=== PATIENT | female | born 1955 | race African-American/Black ===

== ENCOUNTER 2016-08-05 15:23 | Emergency (ER) | payer MEDICARE, MEDICAID ==
[~2016-08-05] VITALS: Ht 180.3 cm; Wt 123.8 kg
[2016-08-05 16:00] VITALS: BP 149/96
--- NOTE | 2016-08-05 16:16 | Emergency Room Report ---
History of Present Illness General Chief Complaint: Upper Respiratory Illness Source: Patient Present Illness HPI 60 YO Female presents to the ED c/o cough and increased phlegm x5 days, difficult to clear phlegm from throat, denies fevers or chills was recently treated with Z-pack for pneumonia. denies SOB, wheezing, edema in the lower extremities, abdominal pain, rashes, RICHARDSON, or neck pain/stiffness. Denies CP, Palpitations, LOC, AMS, dizziness, Changes in Vision, Sensation, paresthesias, or a sudden severe headache. Allergies: Coded Allergies: IODINE (Verified Allergy, Unknown, 08/05/16) Patient History Past Medical History: see triage record Past Surgical History: none Pertinent Family History: none Last Menstrual Period: menopause Now: No Immunizations: UTD Reviewed Nursing Documentation: PMH: Agreed, PSxH: Agreed Nursing Documentation-PMH Past Medical History: No History, Except For Hx Hypertension: Yes Hx Diabetes: Yes Hx Gastrointestinal Problems: Yes - GERD Review of Systems All Other Systems: negative except mentioned in HPI Physical Exam Vital Signs Date Time Temp Pulse Resp B/P Pulse Ox O2 Delivery O2 Flow Rate FiO2 08/05/16 15:45 98.2 83 16 149/96 100 Room Air Sp02 EP Interpretation: reviewed, normal General Appearance: no apparent distress, alert, GCS 15, non-toxic Head: normocephalic, atraumatic Eyes: bilateral eye PERRL, bilateral eye normal inspection ENT: hearing grossly normal, normal pharynx, no angioedema, normal voice Neck: full range of motion, no meningismus, no bony tend, supple/symm/no masses Respiratory: chest non-tender, lungs clear, normal breath sounds, speaking full sentences, wheezing - scant bilateral wheezing Cardiovascular #1: regular rate, rhythm, no edema, normal capillary refill Musculoskeletal: back normal, gait/station normal, normal range of motion, non- tender Neurologic: alert, oriented x3, responsive, motor strength/tone normal, sensory intact, speech normal Psychiatric: judgement/insight normal, memory normal, mood/affect normal Skin: normal color, no rash, warm/dry, well hydrated Lymphatic: no adenopathy Medical Decision Making PA Attestation Dr. Marquez is my supervising Physician whom patient management has been discussed with. Diagnostic Impression: Primary Impression: Bronchitis Additional Impression: Phlegm in throat ER Course Pt. presents to the ED c/o cough and increased phlegm x5 days, difficult to clear phlegm from throat, denies fevers or chills was recently treated with Z- pack for pneumonia. Ddx considered but are not limited to URI, pneumonia, PE, strep pharyngitis, meningitis. Vital signs: Pt.is afebrile VS are WNL H&PE are most consistent with bronchitis ORDERS: none required at this time, the diagnosis is clinical ED INTERVENTIONS: None required at this time. DISCHARGE: At this time pt. is stable for d/c to home. Will provide printed patient care instructions, and any necessary prescriptions. Care plan and follow up instructions have been discussed with the patient prior to discharge. Last Vital Signs Date Time Temp Pulse Resp B/P Pulse Ox O2 Delivery O2 Flow Rate FiO2 08/05/16 15:45 98.2 83 16 149/96 100 Room Air Disposition: HOME, SELF-CARE Condition: Stable Scripts Albuterol Sulfate* (ALBUTEROL SULFATE MDI*) 8.5 Gm Hfa.aer.ad 2 PUFF INH Q4H, #1 INH 0 Refills Prov: Claribel Toribio 08/05/16 Codeine/Promethazine Hcl* (PROMETHAZINE-CODEINE SYRUP*) 118 Ml Syrup 5 ML ORAL Q6H Y for For Cough, #118 ML 0 Refills Prov: Claribel Toribio 08/05/16 Guaifenesin (Guaifenesin) 1,200 Mg Tab.er.12h 1200 MG PO BID for 10 Days, #20 TAB Prov: Claribel Toribio 08/05/16 Patient Instructions: Acute Bronchitis Additional Instructions: Take medications as directed. Follow up with PCP in 3-5 days Return sooner to ED if new symptoms occur, or current symptoms become worse. - Please note that this Emergency Department Report was dictated using [employer] web architect technology software, occasionally this can lead to erroneous entry secondary to interpretation by the dictation equipment. Claribel Toribio August 05, 2016 16:16
[2016-08-05 16:30] VITALS: BP 149/96
[2016-08-05] MEDS ORDERED: ALBUTEROL SULF8.5 GM INH (16:31)
[2016-08-05] MEDS ORDERED: PROMETHAZINE-C118 M1 ORAL (16:31)
[2016-08-05] MEDS ORDERED: GUAIFENESIN1200 MG PO (16:31)
== END 2016-08-05 17:30 | disposition home or self-care (01) ==
LOC: EMR 17:15
DX: J20.9 Acute bronchitis, unspecified (principal); Z91.041 Radiographic dye allergy status; I10 Essential (primary) hypertension; E11.9 Type 2 diabetes mellitus without complications; K21.9 Gastro-esophageal reflux disease without esophagitis
CPT/HCPCS: 99284

== ENCOUNTER 2017-02-08 06:04 | Emergency (ER) | payer MEDICARE, MEDICAID ==
[~2017-02-08] VITALS: Ht 180.3 cm; Wt 126.1 kg
[~2017-02-08 06:04] MED LIST: ALBUTEROL SULF8.5 GM INH; GUAIFENESIN1200 MG PO; PROMETHAZINE-C118 M1 ORAL
[2017-02-08 06:15] VITALS: BP 161/97
--- NOTE | 2017-02-08 06:38 | Emergency Room Report ---
History of Present Illness General Chief Complaint: Pain Source: Patient Present Illness HPI Patient is a 61-year-old female who presented after having increased right knee pain. Patient had prior history of arthritis. The patient present for several months. The patient presented increased pain behind her patella. This had worsened over the past few days. The patient was having increased pain with ambulation. She denies any trauma. The patient noticed some increased swelling. She had not been having any fever. She denied taking pain medications at home. Allergies: Coded Allergies: IODINE (Verified Allergy, Unknown, 08/05/16) Patient History Past Medical History: see triage record Last Menstrual Period: n/a Reviewed Nursing Documentation: PMH: Agreed, PSxH: Agreed Nursing Documentation-PMH Hx Hypertension: Yes Hx Diabetes: Yes Hx Gastrointestinal Problems: Yes - GERD Review of Systems All Other Systems: negative except mentioned in HPI Physical Exam Vital Signs Date Time Temp Pulse Resp B/P (MAP) Pulse Ox O2 Delivery O2 Flow Rate FiO2 02/08/17 06:06 98.2 90 16 161/97 94 Room Air General Appearance: well appearing, no apparent distress, obese Head: normocephalic, atraumatic ENT: hearing grossly normal, normal voice Neck: full range of motion, supple Respiratory: no respiratory distress, speaking full sentences Cardiovascular #1: normal inspection, regular rate, rhythm, no edema, no gallop Musculoskeletal: digits/nails normal, no calf tenderness, other - slight joint swelling, no ligamentous laxity right knee, slight tenderness to patella Neurologic: normal inspection, alert, oriented x3, responsive, 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 Differential diagnosis included was not limited to popliteal aneurysm, arthritis, dislocation, ligamentous injury, septic joint among others. Patient's benign exam and does not appear to require any further imaging or laboratory testing at this time. The patient given IM Toradol for pain. The patient is advised to follow up with primary care doctor in 1-2 days. Patient is advised to return if any worsening condition or if any changes in status that are concerning. Last Vital Signs Date Time Temp Pulse Resp B/P (MAP) Pulse Ox O2 Delivery O2 Flow Rate FiO2 02/08/17 06:06 98.2 90 16 161/97 94 Room Air Status: improved Disposition: HOME, SELF-CARE Condition: Stable JimmyEliezer Feb 08, 2017 06:38
[2017-02-08] MEDS ORDERED: LIDOCAINE700 M1 TP (06:39)
[2017-02-08] MEDS ORDERED: Ketorolac 60mg Inj IM ONE (06:45)
[2017-02-08 06:53] VITALS: BP 161/97
== END 2017-02-08 06:53 | disposition home or self-care (01) ==
LOC: EMR 06:36
DX: M17.11 Unilateral primary osteoarthritis, right knee (principal); I10 Essential (primary) hypertension; K21.9 Gastro-esophageal reflux disease without esophagitis; Z88.8 Allergy status to other drugs, medicaments and biological substances
CPT/HCPCS: 96372; 99283

== ENCOUNTER 2017-05-02 12:17 | Emergency (ER) | payer MEDICARE, MEDICAID ==
[~2017-05-02] VITALS: Ht 180.3 cm; Wt 122.9 kg
[~2017-05-02 12:17] MED LIST changes: +LIDOCAINE700 M1 TP
[2017-05-02 12:37] VITALS: BP 179/99
[2017-05-02] MEDS ORDERED: PROMETHAZI6.25 MG/1 ORAL (12:56)
[2017-05-02] MEDS ORDERED: IBUPROFEN600 MG ORAL (12:56)
--- NOTE | 2017-05-02 12:56 | Emergency Room Report ---
History of Present Illness General Chief Complaint: Upper Respiratory Illness Source: Patient, Medical Record Present Illness HPI 61 yo female patient presents to ER complaining of cough x1 week. Patient reports taking Robitussin with mild relief of symptoms. Patient requesting medication to help with cough. Patient denies history of sick contacts. Patient denies fever, nausea, vomiting, chest pain, SOB, rash, vision changes. Allergies: Coded Allergies: IODINE (Verified Allergy, Unknown, 08/05/16) Patient History Past Medical History: see triage record Social History: Denies: smoking, alcohol use, drug use Reviewed Nursing Documentation: PMH: Agreed, PSxH: Agreed Nursing Documentation-PMH Past Medical History: No History, Except For Hx Hypertension: Yes Hx Diabetes: Yes Hx Gastrointestinal Problems: Yes - GERD Review of Systems All Other Systems: negative except mentioned in HPI Physical Exam Vital Signs Date Time Temp Pulse Resp B/P (MAP) Pulse Ox O2 Delivery O2 Flow Rate FiO2 05/02/17 12:31 98.2 89 18 179/99 97 Room Air Sp02 EP Interpretation: reviewed, normal General Appearance: no apparent distress, alert, GCS 15, non-toxic Head: normocephalic, atraumatic Eyes: bilateral eye normal inspection, bilateral eye PERRL ENT: hearing grossly normal, normal pharynx, no angioedema, normal voice, TMs + canals normal, uvula midline, moist mucus membranes Neck: full range of motion, supple/symm/no masses Respiratory: chest non-tender, lungs clear, normal breath sounds, no respiratory distress, no accessory muscle use, no wheezing, speaking full sentences Cardiovascular #1: regular rate, rhythm Genitourinary: no CVA tenderness Musculoskeletal: back normal, digits/nails normal, gait/station normal, normal range of motion, non-tender, calf tenderness Neurologic: alert, oriented x3, responsive, motor strength/tone normal, sensory intact, speech normal Psychiatric: memory normal, mood/affect normal Skin: normal color, no rash, warm/dry, well hydrated Lymphatic: no adenopathy Medical Decision Making PA Attestation Dr. Robles is my supervising Physician whom patient management has been discussed with. Diagnostic Impression: Primary Impression: Upper respiratory infection ER Course Pt presents to ED c/o cough DDX considered but are not limited to influenza, viral URI, allergies, rhinitis , sinusitis. VITAL SIGNS are WNL, patient is afebrile ORDERS: none required at this time, diagnosis is clinical ED INTERVENTIONS: none required at this time DISCHARGE: At this time pt is stable for d/c to home. -Rx given for Motrin/Ibuprofen for fever/pain. -Rx given for Promethazine syrup for cough sx. Patient to take medications as instructed Will provide with patient care instructions and any necessary prescriptions. Care plan and follow-up instructions provided. Patient instructed to follow-up with primary care provider in 3 - 5 days. Patient questions asked and answered. ER precautions given. Patient instructed to return to ER immediately for any new or worsening of symptoms including but not limited to increasing SOB, persistent fever. Last Vital Signs Date Time Temp Pulse Resp B/P (MAP) Pulse Ox O2 Delivery O2 Flow Rate FiO2 05/02/17 12:37 98.2 18 179/99 97 Room Air 05/02/17 12:37 89 Disposition: HOME, SELF-CARE Condition: Stable Scripts Ibuprofen* (MOTRIN*) 600 Mg Tablet 600 MG ORAL Q8H Y for For Pain, #30 TAB 0 Refills Prov: Esteban Mike 05/02/17 Promethazine Hcl (PROMETHAZINE HCL*) 6.25 Mg/5 Ml Syrup 5 ML ORAL Q8H, #120 ML 0 Refills Prov: Esteban Mike 05/02/17 Patient Instructions: Upper Respiratory Infection, Adult Additional Instructions: Followup with primary care provider in 3 -5 days. Take medications as directed. Patient questions asked and answered. ER precautions given, patient instructed to return to ER immediately for any new or worsening of symptoms. Esteban Mike May 02, 2017 12:56
[2017-05-02 13:12] VITALS: BP 179/99
== END 2017-05-02 13:13 | disposition home or self-care (01) ==
LOC: EMR 12:58
DX: J06.9 Acute upper respiratory infection, unspecified (principal); I10 Essential (primary) hypertension; E11.9 Type 2 diabetes mellitus without complications; K21.9 Gastro-esophageal reflux disease without esophagitis
CPT/HCPCS: 99284

== ENCOUNTER 2017-06-27 14:38 | Emergency (ER) | payer MEDICARE, MEDICAID ==
[~2017-06-27] VITALS: Ht 180.3 cm; Wt 123.8 kg
[~2017-06-27 14:38] MED LIST changes: +IBUPROFEN600 MG ORAL; +PROMETHAZI6.25 MG/1 ORAL
--- NOTE | 2017-06-27 14:56 | Emergency Room Report ---
History of Present Illness General Chief Complaint: Female Urogenital Problems Source: Patient, Medical Record Present Illness HPI 61 yo female patient presents to ER complaining of foul smelling vaginal odor. Reports frequency. Denies dysuria, hematuria, vaginal discharge. Reports sexually monogamous relationship with boyfriend; denies use of condoms. Reports LMP was years ago. Reports hx of syphilis treated years ago; no active infection. Denies hx of gonorrhea or chlamydia. Denies vaginal sores or lesions. Reports last PAP one year ago, no abnormal findings. Denies fever, chest pain, SOB, abdominal pain. Allergies: Coded Allergies: IODINE (Verified Allergy, Unknown, 08/05/16) Patient History Past Medical History: see triage record Last Menstrual Period: menopause Reviewed Nursing Documentation: PMH: Agreed; PSxH: Agreed Nursing Documentation-PMH Past Medical History: No History, Except For Hx Hypertension: Yes Hx Diabetes: Yes Hx Gastrointestinal Problems: Yes - GERD Review of Systems All Other Systems: negative except mentioned in HPI Physical Exam Vital Signs Date Time Temp Pulse Resp B/P (MAP) Pulse Ox O2 Delivery O2 Flow Rate FiO2 06/27/17 14:45 98.7 83 18 157/87 95 Room Air 98.8 Sp02 EP Interpretation: reviewed, normal General Appearance: well appearing, no apparent distress, alert, GCS 15, non- toxic Head: normocephalic, atraumatic Eyes: bilateral eye normal inspection, bilateral eye PERRL ENT: hearing grossly normal, normal pharynx, no angioedema, normal voice, uvula midline, moist mucus membranes Neck: full range of motion Respiratory: lungs clear, normal breath sounds, no rhonchi, no respiratory distress, no accessory muscle use, no wheezing, speaking full sentences Cardiovascular #1: regular rate, rhythm, no edema Gastrointestinal: non tender, soft, no mass, non-distended, no guarding, no rebound Genitourinary: no CVA tenderness, deferred Musculoskeletal: back normal, digits/nails normal, gait/station normal, normal range of motion, non-tender Neurologic: alert, oriented x3, responsive, motor strength/tone normal, sensory intact Psychiatric: mood/affect normal Skin: no rash Lymphatic: no adenopathy Medical Decision Making PA Attestation Dr. Robles is my supervising Physician whom patient management has been discussed with. Diagnostic Impression: Primary Impression: Vaginitis Additional Impression: Urinary tract infection ER Course Pt presents to ED c/o foul smell from vagina. DDX considered but are not limited to cystitis, pyelonephritis, STI, vaginitis, bacterial vaginosis. VITAL SIGNS are WNL, patient is afebrile. Ordered UA. ER COURSE Pelvic deferred. UA results positive for WBC and leukocyte esterase, indicate possible UTI, patient complains of frequency, will treat with abx. Will provide treatment for symptomatic vaginitis. Patient instructed to refrain from sexual contact. Followup with primary care provider and OBGYN. Followup with STI clinic for further testing and treatment. Sexual partners may require testing and treatment as well. Low suspicion for STI, sexually monogamous relationship, no vaginal discharge. Will not test for STI in ER. Patient is resting comfortably in chair, nontoxic appearing, in no acute distress. Patient states they feel better and is ready to go home. DISCHARGE: -Rx provided for Flagy. Do not drink while on medication. Rx provided for Keflex for UTI. Will provide with patient care instructions and any necessary prescriptions. Patient understands and agrees to treatment plan. Patient encouraged to drink plenty of fluids. Patient to take medication as instructed. Care plan and follow-up instructions provided. Patient questions asked and answered. Reports understanding and agreement to treatment plan. Patient instructed to follow-up with primary care provider in 3 - 5 days. ER precautions given. Patient instructed to return to ER immediately for any new or worsening of symptoms. Including but not limited to fever, worsening pain , intractable vomiting. Labs Test 06/27/17 15:15 Urine Color Yellow Urine Appearance Slightly cloudy Urine pH 6 (4.5-8.0) Urine Specific [place] 1.020 (1.005-1.035) Urine Protein 1+ (NEGATIVE) Urine Glucose (UA) Negative (NEGATIVE) Urine Ketones 1+ (NEGATIVE) Urine Occult Blood 2+ (NEGATIVE) Urine Nitrite Negative (NEGATIVE) Urine Bilirubin Negative (NEGATIVE) Urine Urobilinogen 1 MG/DL (0.0-1.0) Urine Leukocyte Esterase 2+ (NEGATIVE) Urine RBC 5-10 /HPF (0 - 2) Urine WBC 2-4 /HPF (0 - 2) Urine Squamous Epithelial Cells Few /LPF (NONE/OCC) Urine Amorphous Sediment Few /LPF (NONE) Urine Bacteria Few /HPF (NONE) Last Vital Signs Date Time Temp Pulse Resp B/P (MAP) Pulse Ox O2 Delivery O2 Flow Rate FiO2 06/27/17 14:45 98.7 83 18 157/87 95 Room Air 98.8 Disposition: HOME, SELF-CARE Condition: Stable Scripts Cephalexin* (KEFLEX*) 500 Mg Capsule 500 MG ORAL EVERY 12 HOURS for 7 Days, #14 CAP 0 Refills Prov: Esteban Mike 06/27/17 Metronidazole* (FLAGYL*) 500 Mg Tablet 500 MG ORAL BID for 7 Days, #14 TAB Prov: Esteban Mike 06/27/17 Patient Instructions: Vaginitis, Urinary Tract Infection Additional Instructions: Followup with primary care provider in 3 -5 days. Take medications as directed. Patient questions asked and answered. ER precautions given, patient instructed to return to ER immediately for any new or worsening of symptoms. Esteban Mike Jun 27, 2017 14:56
[2017-06-27 15:20] VITALS: BP 157/87
[2017-06-27 15:56] LABS: BILIRUBIN, URINE NEGATIVE (NEGATIVE); GLUCOSE, URINE (UA) NEGATIVE (NEGATIVE); KETONES,URINE 1+ (NEGATIVE); LEUKOCYTE ESTERASE ,URINE 2+ (NEGATIVE); NITRITE,URINE NEGATIVE (NEGATIVE); PH,URINE 6 (4.5-8.0); PROTEIN,URINE 1+ (NEGATIVE); UROBILINOGEN,URINE 1 MG/DL (0.0-1.0)
[2017-06-27 15:58] LABS: APPEARANCE,URINE SLIGHTLY CLOUDY; COLOR,URINE YELLOW
[2017-06-27] MEDS ORDERED: METRONIDAZOLE500 MG ORAL (16:06)
[2017-06-27] MEDS ORDERED: CEPHALEXIN500 MG ORAL (16:14)
[2017-06-27 16:32] VITALS: BP 153/91
== END 2017-06-27 16:33 | disposition home or self-care (01) ==
LOC: EMR 14:57
DX: N76.0 Acute vaginitis (principal); N39.0 Urinary tract infection, site not specified; E11.9 Type 2 diabetes mellitus without complications; I10 Essential (primary) hypertension; K21.9 Gastro-esophageal reflux disease without esophagitis
CPT/HCPCS: 81003; 99284

== ENCOUNTER 2017-07-11 15:59 | Emergency (ER) | payer MEDICARE, MEDICAID ==
[~2017-07-11] VITALS: Ht 170.2 cm; Wt 123.4 kg
[~2017-07-11 15:59] MED LIST changes: +CEPHALEXIN500 MG ORAL; +METRONIDAZOLE500 MG ORAL
[2017-07-11 16:17] VITALS: BP 151/86
--- NOTE | 2017-07-11 16:38 | Emergency Room Report ---
History of Present Illness General Chief Complaint: Female Urogenital Problems Source: Patient, Medical Record Present Illness HPI 61 yo female patient presents to ER complaining of itching and rash on external vagina since yesterday. Reports used coconut Dove soap last night; reports usually uses "pink Dove soap ". Reports "feels like" swelling and redness of vaginal lips. Reports unable to see vagina and unsure if rash in area. Denies use of medication. Denies hx of STI. Reports appointment with primary care provider scheduled for next Friday. Denies dysuria, hematuria. Denies chest pain, SOB. Allergies: Coded Allergies: IODINE (Verified Allergy, Unknown, 08/05/16) Patient History Past Medical History: see triage record Last Menstrual Period: menopause Reviewed Nursing Documentation: PMH: Agreed; PSxH: Agreed Nursing Documentation-PMH Past Medical History: No History, Except For Hx Hypertension: Yes Hx Diabetes: Yes Hx Gastrointestinal Problems: Yes - GERD Review of Systems All Other Systems: negative except mentioned in HPI Physical Exam Vital Signs Date Time Temp Pulse Resp B/P (MAP) Pulse Ox O2 Delivery O2 Flow Rate FiO2 07/11/17 16:11 98.3 91 16 151/86 95 Room Air 98.2 Sp02 EP Interpretation: reviewed, normal General Appearance: well appearing, no apparent distress, alert, GCS 15, non- toxic Head: normocephalic, atraumatic Eyes: bilateral eye normal inspection, bilateral eye PERRL ENT: hearing grossly normal, normal pharynx, no angioedema, normal voice, uvula midline, moist mucus membranes Neck: full range of motion Respiratory: lungs clear, normal breath sounds, no rhonchi, no respiratory distress, no accessory muscle use, no wheezing, speaking full sentences Cardiovascular #1: regular rate, rhythm, no edema Genitourinary: ext genitalia/vag normal, other - no Bartholin cyst Musculoskeletal: back normal, digits/nails normal, gait/station normal, normal range of motion, non-tender Neurologic: alert, oriented x3, responsive, motor strength/tone normal, sensory intact Psychiatric: mood/affect normal Skin: no rash, other - no discharge, no satellite lesions, no central clearing , no open wounds, no vesicles, no blisters, no sores, no erythema or edema Medical Decision Making PA Attestation Dr. Marquez is my supervising Physician whom patient management has been discussed with. Diagnostic Impression: Primary Impression: Contact dermatitis ER Course Pt. presents to the ED c/o rash. Ddx considered but are not limited to atopic dermatitis, allergic reaction, contact dermatitis, fungal infection. No satellite lesions, no maculopapular rash, no vesicles, no blisters. No dysuria, hematuria, vaginal discharge, does not require UA at this time. Vital signs: are WNL, pt. is afebrile ORDERS: None required at this time, the diagnosis is clinical ER COURSE: PE benign. Will treat symptomatically for contact dermatitis. If concern for STI , f/u with STI clinic. Reports no concern at this time. D/c use of new Dove soap. Apply small amount of hydrocortisone cream to affected area. Do not put in vaginal vault. Return to ER for new or worsening of symptoms. Discuss further treatment and followup at schedule appointment with PCP next Friday. DISCHARGE: -Rx given for Hydrocortisone At this time pt. is stable for d/c to home. Patient resting comfortably, in no acute distress, nontoxic appearing, smiling and laughing and playing on his phone. Will provide printed patient care instructions, and any necessary prescriptions. Care plan and follow up instructions have been discussed with the patient prior to discharge. Patient provided with list of healthcare clinics to establish primary care physician. Patient instructed to follow-up with primary care provider in 3 - 5 days. Patient questions asked and answered. ER precautions given. Patient instructed to return to ER immediately for any new or worsening of symptoms including but not limited to increasing SOB, persistent fever. Last Vital Signs Date Time Temp Pulse Resp B/P (MAP) Pulse Ox O2 Delivery O2 Flow Rate FiO2 07/11/17 16:17 98.2 91 16 151/86 95 Room Air 98.2 Disposition: HOME, SELF-CARE Condition: Stable Scripts Hydrocortisone 1% cream (Hydrocortisone 1% cream) Y Cr 28.4 GM RC DAILY for 5 Days, GM Prov: Esteban Mike 07/11/17 Patient Instructions: Contact Dermatitis, Wiwu-de-Hlru Additional Instructions: Followup with primary care provider at scheduled appointment. Take medications as directed. Do not apply excessive amount of cream to affected area. Patient questions asked and answered. ER precautions given, patient instructed to return to ER immediately for any new or worsening of symptoms. Esteban Mike Jul 11, 2017 16:38
[2017-07-11] MEDS ORDERED: HYDROCORTISON28.4 G5 RC (17:06)
[2017-07-11 17:13] VITALS: BP 151/86
== END 2017-07-11 17:15 | disposition home or self-care (01) ==
LOC: EMR 17:00
DX: L25.9 Unspecified contact dermatitis, unspecified cause (principal); I10 Essential (primary) hypertension; E11.9 Type 2 diabetes mellitus without complications; K21.9 Gastro-esophageal reflux disease without esophagitis; Z91.041 Radiographic dye allergy status
CPT/HCPCS: 99283

== ENCOUNTER 2017-11-29 19:13 | Observation (INO) | payer MEDICARE, MEDICAID ==
[~2017-11-29] VITALS: Ht 182.9 cm; Wt 124.7 kg
[~2017-11-29 19:13] MED LIST changes: +HYDROCORTISON28.4 G5 RC
[2017-11-29 19:47] LABS: APPEARANCE,URINE SLIGHTLY CLOUDY; BILIRUBIN, URINE NEGATIVE (NEGATIVE); COLOR,URINE AMBER; GLUCOSE, URINE (UA) NEGATIVE (NEGATIVE); KETONES,URINE NEGATIVE (NEGATIVE); LEUKOCYTE ESTERASE ,URINE NEGATIVE (NEGATIVE); NITRITE,URINE NEGATIVE (NEGATIVE); PH,URINE 6 (4.5-8.0); PROTEIN,URINE NEGATIVE (NEGATIVE); UROBILINOGEN,URINE NORMAL MG/DL (0.0-1.0)
[2017-11-29 20:00] LABS: EOSINOPHILS % (AUTO) 1.4 % (0.0-3.0); HEMATOCRIT 40.5 % (37.0-47.0); HEMOGLOBIN 12.9 G/DL (12.0-16.0); MEAN CORPUSCULAR VOLUME 92 FL (80-99); MONOCYTES % (AUTO) 2.9 % (1.0-10.0); NEUTROPHILS % (AUTO) 68.7 % (45.0-75.0); PLATELET COUNT 265 K/UL (150-450); WHITE BLOOD COUNT 16.3 K/UL (4.8-10.8)
[2017-11-29 20:08] LABS: ANION GAP 9 mmol/L (5-15); BLOOD UREA NITROGEN 15 mg/dL (7-18); CALCIUM 9.3 MG/DL (8.5-10.1); CARBON DIOXIDE 28 MMOL/L (21-32); CHLORIDE 102 MMOL/L (98-107); POTASSIUM 3.5 MMOL/L (3.5-5.1); SODIUM 139 MMOL/L (136-145)
[2017-11-29 20:13] LABS: ALANINE AMINOTRANSFERASE 29 U/L (12-78); ALBUMIN 3.8 G/DL (3.4-5.0); ALBUMIN/GLOBULIN RATIO 0.9 (1.0-2.7); ALKALINE PHOSPHATASE 109 U/L (46-116); ASPARTATE AMINO TRANSFERASE 17 U/L (15-37); BILIRUBIN,TOTAL 0.5 MG/DL (0.2-1.0)
[2017-11-29 20:25] VITALS: BP 136/82
--- NOTE | 2017-11-29 20:39 | Diagnostic Imaging Report ---
EXAM: XR Abdomen 2 Views With XR Chest CLINICAL HISTORY: ABD PAIN TECHNIQUE: Frontal view of the chest, frontal view of the abdomen/pelvis and upright or decubitus view of the abdomen. COMPARISON: No relevant prior studies available. FINDINGS: Lungs: Unremarkable. No consolidation. Pleural space: Unremarkable. No pneumothorax. Heart: Unremarkable. No cardiomegaly. Mediastinum: Unremarkable. Intraperitoneal space: No free air. Gastrointestinal tract: Unremarkable. No dilation. Organs: Evidence of prior cholecystectomy. Bones/joints: Unremarkable. IMPRESSION: No acute findings.
--- NOTE | 2017-11-29 20:39 | Diagnostic Imaging Report ---
EXAM: XR Chest, 1 View CLINICAL HISTORY: ABD PAIN TECHNIQUE: Frontal view of the chest. COMPARISON: No relevant prior studies available. FINDINGS: Lungs: Unremarkable. No consolidation. Pleural space: Unremarkable. No pneumothorax. Heart: Unremarkable. No cardiomegaly. Mediastinum: Unremarkable. Bones/joints: Unremarkable. IMPRESSION: Normal chest x-ray.
--- NOTE | 2017-11-29 21:28 | Emergency Room Report ---
History of Present Illness General Chief Complaint: Constipation Source: Patient (Jj Tovar M.D.) Present Illness HPI Patient presents with constipation. She initially had diarrhea several days ago. Her boyfriend also had diarrhea also. She took Imodium. This stopped her from moving her bowels. She has not moved her bowels for 3 days. She has left flank pain without dysuria or hematuria. In addition to that she's had some chest pain. The patient is diabetic and hypertensive. The diarrhea was brown and green and mucousy. There is no blood. She's not passed blood per rectum. (Jj Tovar M.D.) Allergies: Coded Allergies: IODINE (Verified Allergy, Unknown, 08/05/16) Patient History Past Medical History: see triage record Social History: Denies: smoking, alcohol use, drug use Social History Narrative with boyfriend Reviewed Nursing Documentation: PMH: Agreed; PSxH: Agreed (Jj Tovar M.D.) Nursing Documentation-PMH Hx Hypertension: Yes Hx Diabetes: Yes Hx Gastrointestinal Problems: Yes - GERD (Jj Tovar M.D.) Review of Systems All Other Systems: negative except mentioned in HPI (Jj Tovar M.D.) Physical Exam Vital Signs Date Time Temp Pulse Resp B/P (MAP) Pulse Ox O2 Delivery O2 Flow Rate FiO2 11/29/17 19:24 98.5 91 18 134/80 95 Room Air 98.4 Sp02 EP Interpretation: reviewed, normal General Appearance: no apparent distress, GCS 15 Head: normocephalic Eyes: bilateral eye normal inspection, bilateral eye PERRL ENT: moist mucus membranes Neck: supple Respiratory: lungs clear, normal breath sounds Cardiovascular #1: regular rate, rhythm Cardiovascular #2: 2+ radial (R) Gastrointestinal: normal inspection, normal bowel sounds, non-distended, no rebound, guarding, tenderness - L flank and LLQ, overweight Genitourinary: no CVA tenderness Musculoskeletal: back normal, gait/station normal, normal range of motion Neurologic: alert, oriented x3, grossly normal Psychiatric: mood/affect normal Skin: normal inspection, warm/dry, other - alopecia (Jj Tovar M.D.) Medical Decision Making Diagnostic Impression: Primary Impression: Left flank pain Additional Impressions: Diabetes Qualified Codes: E11.8 - Type 2 diabetes mellitus with unspecified complications Leukocytosis Qualified Codes: D72.829 - Elevated white blood cell count, unspecified Microscopic hematuria Constipation Qualified Codes: K59.00 - Constipation, unspecified ER Course Patient presents with diarrhea and no constipation. Differential includes viral gastroenteritis now with constipation after she Imodium, diverticulitis, pyelonephritis, renal stone amongst others. As diabetic has higher, comorbidity. Evaluation will be with EKG, chest x-ray, abdominal film and labs. Patient be treated with IV hydration. Concern over chest pain also and ACS needs exclusion. Exam is most c/w diverticulitis. Difficult exam due to obesity. Patient has leukocytosis. Chest x-ray unremarkable. Abdomen films with no obstruction. Because of leukocytosis the patient needs to have CT scan of the abdomen. Considerations for obstructing stone, diverticulitis amongst others. Patient awaiting CT scan. She has an improved exam at this time. There is no guarding. There is still some mild left CVA tenderness. No pyuria. Still needs observation as initial process suggested gastroenteritis, now with constipation is against this diagnosis. Leukocytosis disconcerting. Consideration with hematuria, renal stone. Patient needs observation. Admit med Dr. Gutierrez. CT signed out to Dr. Chery. Laboratory Tests Test 11/29/17 19:24 11/29/17 19:45 Urine Color Ale Urine Appearance Slightly cloudy Urine pH 6 (4.5-8.0) Urine Specific [place] 1.015 (1.005-1.035) Urine Protein Negative (NEGATIVE) Urine Glucose (UA) Negative (NEGATIVE) Urine Ketones Negative (NEGATIVE) Urine Blood 2+ (NEGATIVE) H Urine Nitrite Negative (NEGATIVE) Urine Bilirubin Negative (NEGATIVE) Urine Ictotest Negative (NEGATIVE) Urine Urobilinogen Normal MG/DL (0.0-1.0) Urine Leukocyte Esterase Negative (NEGATIVE) Urine RBC 10-15 /HPF (0 - 2) H Urine WBC 0-2 /HPF (0 - 2) Urine Squamous Epithelial Cells Moderate /LPF (NONE/OCC) H Urine Bacteria Few /HPF (NONE) White Blood Count 16.3 K/UL (4.8-10.8) H Red Blood Count 4.40 M/UL (4.20-5.40) Hemoglobin 12.9 G/DL (12.0-16.0) Hematocrit 40.5 % (37.0-47.0) Mean Corpuscular Volume 92 FL (80-99) Mean Corpuscular Hemoglobin 29.4 PG (27.0-31.0) Mean Corpuscular Hemoglobin Concent 31.9 G/DL (32.0-36.0) L Red Cell Distribution Width 12.0 % (11.6-14.8) Platelet Count 265 K/UL (150-450) Mean Platelet Volume 6.6 FL (6.5-10.1) Neutrophils (%) (Auto) 68.7 % (45.0-75.0) Lymphocytes (%) (Auto) 26.0 % (20.0-45.0) Monocytes (%) (Auto) 2.9 % (1.0-10.0) Eosinophils (%) (Auto) 1.4 % (0.0-3.0) Basophils (%) (Auto) 1.0 % (0.0-2.0) Sodium Level 139 MMOL/L (136-145) Potassium Level 3.5 MMOL/L (3.5-5.1) Chloride Level 102 MMOL/L (98-107) Carbon Dioxide Level 28 MMOL/L (21-32) Anion Gap 9 mmol/L (5-15) Blood Urea Nitrogen 15 mg/dL (7-18) Creatinine 1.0 MG/DL (0.55-1.30) Estimate Glomerular Filtration Rate > 60 mL/min (>60) Glucose Level 156 MG/DL (74-106) H Calcium Level 9.3 MG/DL (8.5-10.1) Total Bilirubin 0.5 MG/DL (0.2-1.0) Aspartate Amino Transferase (AST) 17 U/L (15-37) Alanine Aminotransferase (ALT) 29 U/L (12-78) Alkaline Phosphatase 109 U/L (46-116) Total Protein 7.9 G/DL (6.4-8.2) Albumin 3.8 G/DL (3.4-5.0) Globulin 4.1 g/dL Albumin/Globulin Ratio 0.9 (1.0-2.7) L Lipase 169 U/L (73-393) (Jj Tovar M.D.) ER Course Patient signout to mn. She was been admitted for abdominal pain and leukocytosis. CT scan was pending. (CHERY,SANDRO M.D.) EKG Diagnostic Results Rate: normal Rhythm: NSR ST Segments: no acute changes (Jj Tovar M.D.) Rhythm Strip Diag. Results EP Interpretation: yes Rhythm: NSR, no PVC's, no ectopy (Jj Tovar M.D.) Chest X-Ray Diagnostic Results Chest X-Ray Diagnostic Results : Chest X-Ray Ordered: Yes # of Views/Limited/Complete: 1 View Indication: Other Interpretation: no consolidation, no effusion, no pneumothorax Impression: No acute disease Electronically Signed by: Electronically signed by Jj Tovar MD (Jj Tovar M.D.) Other X-Ray Diagnostic Results Other X-Ray Diagnostic Results : X-Ray ordered: abd # of Views/Limited Vs Complete: 1 View Indication: Pain Interpretation: nonspecific bowel gas, no sbo, other - girth Impression: Other Electronically Signed by: Electronically signed by jJ Tovar MD (Jj Tovar M.D.) CT/MRI/US Diagnostic Results CT/MRI/US Diagnostic Results : Imaging Test Ordered: abd pelvis Impression Return after admission. FINDINGS: Lung bases: Dependent atelectasis. ABDOMEN: Liver: Cirrhotic liver. Gallbladder and bile ducts: Gallbladder is surgically absent. Pancreas: Unremarkable. Spleen: Unremarkable. Adrenals: Unremarkable. Kidneys and ureters: Unremarkable. Stomach and bowel: Noninflamed colonic diverticulosis. PELVIS: Appendix: Appendix is unremarkable. Bladder: Unremarkable. Reproductive: Unremarkable as visualized. ABDOMEN and PELVIS: Intraperitoneal space: Unremarkable. Bones/joints: No acute fracture. No dislocation. Soft tissues: Unremarkable. Vasculature: Vascular calcifications. No abdominal aortic aneurysm. Lymph nodes: Unremarkable. IMPRESSION: No acute findings. (Jj Tovar M.D.) CT/MRI/US Diagnostic Results : Imaging Test Ordered: CT abdomen Impression negative per radiologist. (SANDRO CHERY M.D.) Last Vital Signs Date Time Temp Pulse Resp B/P (MAP) Pulse Ox O2 Delivery O2 Flow Rate FiO2 11/30/17 04:00 98.1 88 18 160/87 (111) 98 98.1 11/30/17 03:08 Room Air Status: improved (Jj Tovar M.D.) Disposition: ADMITTED INPATIENT Condition: Serious Referrals: NON PHYSICIAN (PCP) Jj Tovar M.D. Nov 29, 2017 21:28 SANDRO CHERY M.D. Nov 30, 2017 01:57
[2017-11-29] MEDS ORDERED: Isovue-300 100ml vial INJ PRN (21:45)
[2017-11-29 22:25] VITALS: BP 155/84
[2017-11-30 00:25] VITALS: BP 146/76
[2017-11-30] MEDS ORDERED: GABAPENTIN100 MG ORAL (01:35)
[2017-11-30] MEDS ORDERED: PRILOSEC OTC20 MG ORAL (01:35)
[2017-11-30] MEDS ORDERED: METFORMIN HCL500 M1 ORAL (01:35)
[2017-11-30] MEDS ORDERED: ENALAPRIL1.25 MG/ML IV (01:35)
--- NOTE | 2017-11-30 01:40 | Diagnostic Imaging Report ---
EXAM: CT Abdomen and Pelvis With Intravenous Contrast CLINICAL HISTORY: ABD PAIN TECHNIQUE: Axial computed tomography images of the abdomen and pelvis with intravenous contrast. CTDI is 0.15, 34.43 mGy and DLP is 1889 mGy-cm. One or more of the following dose reduction techniques were used: automated exposure control, adjustment of the mA and/or kV according to patient size, use of iterative reconstruction technique. COMPARISON: No relevant prior studies available. FINDINGS: Lung bases: Dependent atelectasis. ABDOMEN: Liver: Cirrhotic liver. Gallbladder and bile ducts: Gallbladder is surgically absent. Pancreas: Unremarkable. Spleen: Unremarkable. Adrenals: Unremarkable. Kidneys and ureters: Unremarkable. Stomach and bowel: Noninflamed colonic diverticulosis. PELVIS: Appendix: Appendix is unremarkable. Bladder: Unremarkable. Reproductive: Unremarkable as visualized. ABDOMEN and PELVIS: Intraperitoneal space: Unremarkable. Bones/joints: No acute fracture. No dislocation. Soft tissues: Unremarkable. Vasculature: Vascular calcifications. No abdominal aortic aneurysm. Lymph nodes: Unremarkable. IMPRESSION: No acute findings.
[2017-11-30] MEDS ORDERED: Milk of Magnesia 30ml Ud ORAL PRN (02:00)
[2017-11-30 04:00] VITALS: BP 160/87
[2017-11-30 08:00] VITALS: BP 168/82
[2017-11-30 09:00] VITALS: BP 141/75
[2017-11-30] MEDS ORDERED: Cefepime HCl 1 GM in D5W 55 ML IVPB SCH (09:00)
[2017-11-30] MEDS ORDERED: Albuterol 90mcg Inhaler 8gm INH SCH (11:00)
[2017-11-30] MEDS ORDERED: metFORMIN 500mg tab ORAL SCH (11:30)
[2017-11-30 12:00] VITALS: BP 153/89
--- NOTE | 2017-11-30 13:46 | Cardiology Report ---
APPROVED REPORT EKG Measurement Heart [id number] Normal sinus rhythm Normal ECG
[2017-11-30] MEDS ORDERED: 1/2 NS 1000ml IV ONE (13:59)
--- NOTE | 2017-12-01 00:45 | History and Physical Report ---
DATE OF ADMISSION: 11/29/2017 CHIEF COMPLAINT/REASON FOR HOSPITALIZATION: The patient admitted with left low back and flank pain, history of diarrhea and constipation. HISTORY OF PRESENT ILLNESS: The patient is a 62-year-old lady with a history of diabetes, hypertension, and gastritis. She had diarrhea last week multiple times a day and this abated and she has been constipated for the last few days. She also complains of left-sided flank pain area and low back pain. She has had spinal stenosis and low back pain. She also has osteoarthritis and injections in her knees about three weeks ago. PAST SURGICAL HISTORY: section, gallbladder, and one procedure for kidney stones. MEDICATIONS: Home medications include metformin 500 mg b.i.d., Prilosec 20 mg daily, gabapentin uncertain dose b.i.d., and enalapril uncertain dose b.i.d. ALLERGIES: To iodine and fish. HABITS: She is a smoker about half pack a day. Alcohol, moderately heavy in the past. Drugs, none. REVIEW OF SYSTEMS: HEENT: Vision and hearing are good. ENDOCRINE: History of diabetes. No obesity. No known thyroid disease. PULMONARY: No asthma, TB, or chronic cough. CARDIAC: No angina, [place], or palpitations. There is a history of hypertension. GASTROINTESTINAL: See history of present illness. There is no history of rectal bleeding or ulcers. GENITOURINARY: She had prior kidney stones. No recurrence. No recent dysuria or hematuria. NEUROLOGIC: No CVA or seizures. MUSCULOSKELETAL: History of back pain and knee pain. PHYSICAL EXAMINATION: GENERAL: The patient is an alert lady, in no acute distress. VITAL SIGNS: Pulse 77, blood pressure 141/75, pulse oximetry 100%, and temperature 98.1 degrees. HEENT: Sclerae are nonicteric. Ocular motions intact in all directions. Oral mucosa moist. NECK: No adenopathy or thyroid enlargement. LUNGS: Clear. HEART: Regular rhythm. No murmur. ABDOMEN: Soft, obese. No organomegaly or tenderness. BACK: No focal tenderness. EXTREMITIES: No edema, cyanosis, or clubbing. Degenerative changes in the knees. Straight leg raising is normal. NEUROLOGIC: She is alert and oriented. Cranial nerves are intact. PERTINENT LABORATORY DATA: Electrolytes normal, glucose 156. She had mild leukocytosis and a CT scan of the abdomen showed no acute disease, but evidence of cirrhosis. IMPRESSION: 1. Left flank pain, very likely from spinal stenosis and low back pain. She does have microscopic hematuria and prior history of kidney stones, but the imaging did not reveal any hydronephrosis or stone, this could be observed. 2. Recent diarrhea and now constipation, likely viral gastroenteritis. The diarrhea has resolved. 3. Osteoarthritis. 4. Diabetes. 5. History of gastritis. 6. History of hypertension. PLAN: The patient was observed and discharge is planned. See my discharge note. Yohan Gutierrez M.D. DR: SHAMEKA JOB#: [id number] CC:
--- NOTE | 2017-12-01 04:30 | Discharge Summary ---
DATE OF ADMISSION: 11/29/2017 DATE OF DISCHARGE: 11/30/2017 PERTINENT HISTORY: See the History and Physical. She presents with left-sided flank and back pain and a history of recent diarrhea and constipation. COURSE IN THE HOSPITAL: She had imaging showing no acute abdominal process, but evidence of cirrhosis. This is explained to the patient. Her pain was mild and she was able to tolerate the pain. There was no dysuria. She had microscopic hematuria. Her vital signs remained stable. She is able to tolerate diet. No nausea or vomiting. It was felt that she had reached maximum hospital benefit and she was discharged home. FINAL DIAGNOSES: 1. Left low back pain and flank pain, likely due to spinal stenosis and lumbar degenerative joint disease. 2. Osteoarthritis. 3. Recent gastroenteritis with diarrhea, resolved. 4. Constipation post diarrhea, likely due to not yet requiring bowel movement because of diarrhea recently. 5. Diabetes. 6. Hypertension. 7. Osteoarthritis. 8. Microscopic hematuria with prior history of kidney stones with negative imaging. PLAN: The patient is stable for discharge home on her prior to admission medicines. See the History and Physical. She is welcome to follow up in the office of Dr. Gutierrez or her prior providers. Yohan Gutierrez M.D. DR: SHAMEKA JOB#: [id number] CC:
== END 2017-11-30 14:00 | disposition home or self-care (01) ==
LOC: EMR 19:53 → 4E 22:33 → INTOOBSV 22:33 → EDBEDREQ 11-30 00:40
DX: M48.061 Spinal stenosis, lumbar region without neurogenic claudication (principal); M51.36 Other intervertebral disc degeneration, lumbar region; R10.9 Unspecified abdominal pain; M19.90 Unspecified osteoarthritis, unspecified site; K59.00 Constipation, unspecified; E11.9 Type 2 diabetes mellitus without complications; Z79.84 Long term (current) use of oral hypoglycemic drugs; Z88.8 Allergy status to other drugs, medicaments and biological substances; F17.200 Nicotine dependence, unspecified, uncomplicated; K29.70 Gastritis, unspecified, without bleeding; I10 Essential (primary) hypertension; R31.29 Other microscopic hematuria
CPT/HCPCS: 36415; 71045; 74018; 74177; 80053; 81003; 83690; 85025; 87045; 87324; 93005; 94640; 99285; G0378 ×2; Q9967

== ENCOUNTER 2018-01-01 19:40 | Emergency (ER) | payer MEDICARE, MEDICAID ==
[~2018-01-01] VITALS: Ht 180.3 cm; Wt 127.0 kg
[~2018-01-01 19:40] MED LIST changes: +ENALAPRIL1.25 MG/ML IV; +GABAPENTIN100 MG ORAL; +METFORMIN HCL500 M1 ORAL; +PRILOSEC OTC20 MG ORAL
[2018-01-01] MEDS ORDERED: Albuterol/Ipratropium 3ml neb HHN ONE (20:15)
[2018-01-01 20:40] VITALS: BP 158/98
[2018-01-01] MEDS ORDERED: ALBUTEROL SULF8.5 GM INH (21:00)
[2018-01-01] MEDS ORDERED: ADULT WAL-100 MG/5 M ORAL (21:00)
[2018-01-01] MEDS ORDERED: CLARITIN-D 121 EAC1 ORAL (21:00)
[2018-01-01 21:54] VITALS: BP 140/90
--- NOTE | 2018-01-01 22:05 | Emergency Room Report ---
History of Present Illness General Chief Complaint: Flu Like Symptoms Source: Patient Present Illness HPI Patient is a 62-year-old female who presented after increased cough and difficulty breathing. Patient reports having prior history of asthma. She reports currently being a smoker. She reports having increased nasal congestion as well as the increased nonproductive cough. The she denies any leg pain or swelling. She reports having a previous similar symptoms in the past. She denies any exertional changes. She was having some chronic pain to her extremities. Allergies: Coded Allergies: IODINE (Verified Allergy, Unknown, 08/05/16) Patient History Past Medical History: see triage record Now: No Reviewed Nursing Documentation: PMH: Agreed; PSxH: Agreed Nursing Documentation-PMH Past Medical History: No History, Except For Hx Hypertension: Yes Hx Diabetes: Yes Hx Gastrointestinal Problems: Yes - GERD Review of Systems All Other Systems: negative except mentioned in HPI Physical Exam Vital Signs Date Time Temp Pulse Resp B/P (MAP) Pulse Ox O2 Delivery O2 Flow Rate FiO2 01/01/18 19:47 99.1 90 20 158/98 95 Room Air 99.1 01/01/18 20:37 21 General Appearance: well appearing, no apparent distress, obese, Chronically Ill Head: normocephalic, atraumatic ENT: hearing grossly normal, normal voice Neck: full range of motion, supple Respiratory: normal breath sounds, no respiratory distress, speaking full sentences, wheezing Cardiovascular #1: normal inspection, regular rate, rhythm, no edema Gastrointestinal: normal inspection, normal bowel sounds, non tender, soft Musculoskeletal: no calf tenderness Neurologic: normal inspection, alert, oriented x3, responsive, normal gait Psychiatric: mood/affect normal Skin: no rash Medical Decision Making Diagnostic Impression: Primary Impression: Acute bronchitis ER Course Patient presented for cough . Differential diagnosis included but was not limited to bronchitis, pneumonia, pulmonary embolism, pericarditis, asthma, foreign body. The x-ray imaging of the chest one view interpreted by me showed normal cardiac size without evident infiltrate there is no evident pleural effusion. The patient given breathing treatment with improvement in her symptoms. The patient is given prescription for symptomatically treatment. Patient does not appear to have any acute bacterial illness. She has no known risk factor for pulmonary embolism.The patient is advised to follow up with primary care doctor in 1-2 days. Patient is advised to return if any worsening condition or if any changes in status that are concerning. This report is dictated with [employer] cutter software which may occasionally lead to discrepancies related to use of this software. Chest X-Ray Diagnostic Results Chest X-Ray Diagnostic Results : Chest X-Ray Ordered: Yes # of Views/Limited/Complete: 1 View EP Interpretation: Yes Interpretation: no consolidation, no effusion, no pneumothorax, no acute cardiopulmonary disease Impression: No acute disease Electronically Signed by: Electronically signed by Dr. Eliezer Marquez M.D. Last Vital Signs Date Time Temp Pulse Resp B/P (MAP) Pulse Ox O2 Delivery O2 Flow Rate FiO2 01/01/18 21:54 98.1 92 14 140/90 96 Room Air 01/01/18 20:47 21 Status: improved Disposition: HOME, SELF-CARE Condition: Stable Scripts Loratadine/Pseudoephedrine (CLARITIN-D 12 HOUR TABLET) 1 Each Tab.er.12h 1 TAB ORAL EVERY 12 HOURS, #14 TAB Prov: Eliezer Marquez MD 01/01/18 Albuterol Sulfate* (ALBUTEROL SULFATE MDI*) 8.5 Gm Hfa.aer.ad 2 PUFF INH Q4H PRN for cough/wheezing, #1 EA 0 Refills Prov: Eliezer Marquez MD 01/01/18 Guaifenesin* (ADULT WAL-TUSSIN*) 100 Mg/5 Ml Liquid 10 ML ORAL Q4H, #120 ML Prov: Eliezer Marquez MD 01/01/18 Referrals: NON PHYSICIAN (PCP) Patient Instructions: Allergic Rhinitis, Acute Bronchitis Eliezer Marquez MD Jan 01, 2018 22:05
--- NOTE | 2018-01-02 08:57 | Diagnostic Imaging Report ---
Indication: Shortness of breath Technique: One view of the chest Comparison: 11/29/2017 Findings: Suboptimal inspiration. The lungs and pleural spaces are clear. The heart is apparently borderline enlarged, probably an artifact of the low lung volumes. Findings are essentially unchanged Impression: Negative
== END 2018-01-01 21:51 | disposition home or self-care (01) ==
LOC: EMR 21:16
DX: J20.9 Acute bronchitis, unspecified (principal); E11.9 Type 2 diabetes mellitus without complications; I10 Essential (primary) hypertension; K21.9 Gastro-esophageal reflux disease without esophagitis
CPT/HCPCS: 71045; 94640; 94664; 99284; J7620

== ENCOUNTER 2018-01-15 17:40 | Emergency (ER) | payer MEDICARE, MEDICAID ==
[~2018-01-15] VITALS: Ht 180.3 cm; Wt 125.6 kg
[~2018-01-15 17:40] MED LIST changes: +ADULT WAL-100 MG/5 M ORAL; +CLARITIN-D 121 EAC1 ORAL
--- NOTE | 2018-01-15 18:20 | Emergency Room Report ---
History of Present Illness General Chief Complaint: Skin Rash/Abscess Source: Patient, Medical Record Present Illness HPI 62-year-old female presents to the emergency department complaining of itchy rash primarily on the face with some involvement of the external ear and on the back of her hands. Patient reports she was trying on a new Foundation 2 days ago and thinks that this may have caused her symptoms. Patient denies pain at this time. Pt. denies fevers, chills or swollen tender lymph nodes. Denies lesions/rashes elsewhere on the body. Denies new medications . Denies swelling of the lips, tongue , throat or airway. Denies wheezing, or shortness of breath. Denies recent travel, recent illness or ill contacts. denies blisters , oral lesions, or sloughing of the skin Allergies: Coded Allergies: IODINE (Verified Allergy, Unknown, 08/05/16) Patient History Past Medical History: see triage record Past Surgical History: none Pertinent Family History: none Last Menstrual Period: 20 yrs ago Now: No Reviewed Nursing Documentation: PMH: Agreed; PSxH: Agreed Nursing Documentation-PMH Past Medical History: No History, Except For Hx Cardiac Problems: No - arthritis Hx Hypertension: Yes Hx Diabetes: Yes Hx Gastrointestinal Problems: Yes - GERD Review of Systems All Other Systems: negative except mentioned in HPI Physical Exam Vital Signs Date Time Temp Pulse Resp B/P (MAP) Pulse Ox O2 Delivery O2 Flow Rate FiO2 01/15/18 17:51 98.4 81 18 157/99 96 Room Air 98.4 Sp02 EP Interpretation: reviewed, normal General Appearance: no apparent distress, alert, GCS 15, non-toxic Head: normocephalic, atraumatic Eyes: bilateral eye normal inspection, bilateral eye PERRL ENT: hearing grossly normal, normal voice, TMs + canals normal, moist mucus membranes, other - No swelling of the lips or tongue, no stridor. Neck: full range of motion Respiratory: lungs clear, normal breath sounds, no wheezing, speaking full sentences Cardiovascular #1: regular rate, rhythm Musculoskeletal: back normal, gait/station normal, normal range of motion, non- tender Neurologic: alert, oriented x3, responsive, motor strength/tone normal, sensory intact, speech normal, grossly normal Psychiatric: judgement/insight normal Skin: normal color, warm/dry, well hydrated, rash - Fine papular rash diffuse across the face as well as scant across the dorsum of the hands bilaterally. There are no blisters, vesicles, open wounds or crusting. Medical Decision Making PA Attestation Dr. Marquez is my supervising Physician whom patient management has been discussed with. Diagnostic Impression: Primary Impression: Dermatitis ER Course 62-year-old female presents to the emergency department complaining of itchy rash primarily on the face with some involvement of the external ear and on the back of her hands. Patient reports she was trying on a new Foundation 2 days ago and thinks that this may have caused her symptoms. Patient denies pain at this time. Pt. denies fevers, chills or swollen tender lymph nodes. Denies lesions/rashes elsewhere on the body. Denies new medications . Denies swelling of the lips, tongue , throat or airway. Denies wheezing, or shortness of breath. Denies recent travel, recent illness or ill contacts. denies blisters , oral lesions, or sloughing of the skin Ddx considered but are not limited to cellulitis, scabies, shingles, varicella, dermatitis, urticaria, eczema, tinea, viral exanthem, SJS Vital signs: are WNL, pt. is afebrile H&PE are most consistent with dermatitis, no evidence of infection at this time , drug side-effect not of suspicion given alternate more plausible etiologies for her rash. ORDERS: none required at this time, the diagnosis is clinical ED INTERVENTIONS: -Prednisone 60 mg PO DISCHARGE: At this time pt. is stable for d/c to home. Will provide printed patient care instructions, and any necessary prescriptions. Care plan and follow up instructions have been discussed with the patient prior to discharge. Last Vital Signs Date Time Temp Pulse Resp B/P (MAP) Pulse Ox O2 Delivery O2 Flow Rate FiO2 01/15/18 17:51 98.4 81 18 157/99 96 Room Air 98.4 Disposition: HOME, SELF-CARE Condition: Stable Patient Instructions: Rash Additional Instructions: Take medications as directed. Follow up with a Primary Care Provider in 3-5 days for DERMATOLOGY REFERRAL , even if your symptoms have resolved. --Please review list of primary care clinics, if you do not already have a primary care provider Return sooner to ED if new symptoms occur, or current symptoms become worse. Do not drink alcohol, drive, or operate heavy machinery while taking Benadryl as this may cause drowsiness. - Please note that this Emergency Department Report was dictated using [employer] software, occasionally this can lead to erroneous entry secondary to interpretation by the dictation equipment. Claribel Toribio Jan 15, 2018 18:20
[2018-01-15] MEDS ORDERED: HYDROCORTISONE30 G2 TP (18:22)
[2018-01-15] MEDS ORDERED: PREDNISONE20 MG ORAL (18:22)
[2018-01-15 19:14] VITALS: BP 149/74
== END 2018-01-15 19:14 | disposition home or self-care (01) ==
LOC: EMR 18:36
DX: L30.8 Other specified dermatitis (principal); I10 Essential (primary) hypertension; E11.9 Type 2 diabetes mellitus without complications; K21.9 Gastro-esophageal reflux disease without esophagitis
CPT/HCPCS: 99282; J7512

== ENCOUNTER 2018-01-29 14:46 | Emergency (ER) | payer MEDICARE, MEDICAID ==
[~2018-01-29] VITALS: Ht 180.3 cm; Wt 125.6 kg
[~2018-01-29 14:46] MED LIST changes: +HYDROCORTISONE30 G2 TP; +PREDNISONE20 MG ORAL
[2018-01-29 14:55] VITALS: BP 176/97
--- NOTE | 2018-01-29 15:16 | Emergency Room Report ---
History of Present Illness General Chief Complaint: Skin Rash/Abscess Source: Patient, Medical Record Present Illness HPI 62-year-old female presents emergency department complaining of diffuse rash in the bilateral forearms as well as neck and face times several weeks. Patient reports she had some improvement with previously prescribed course of prednisone however after completion her symptoms have returned. Patient states she has not followed up for her condition. Pt. denies pain, fevers, chills or swollen tender lymph nodes. Denies lesions/rashes elsewhere on the body. Denies new medications or body washes or creams. Denies swelling of the lips, tongue , throat or airway. Denies wheezing, or shortness of breath. Denies recent travel, recent illness or ill contacts. denies blisters, oral lesions, or sloughing of the skin Allergies: Coded Allergies: IODINE (Verified Allergy, Unknown, 08/05/16) Patient History Past Medical History: see triage record Past Surgical History: none Pertinent Family History: none Now: No Immunizations: UTD Reviewed Nursing Documentation: PMH: Agreed; PSxH: Agreed Nursing Documentation-PMH Past Medical History: No History, Except For Hx Cardiac Problems: No - arthritis Hx Hypertension: Yes Hx Diabetes: Yes Hx Gastrointestinal Problems: Yes - GERD Review of Systems All Other Systems: negative except mentioned in HPI Physical Exam Vital Signs Date Time Temp Pulse Resp B/P (MAP) Pulse Ox O2 Delivery O2 Flow Rate FiO2 01/29/18 14:55 98.2 93 18 176/97 96 Room Air Sp02 EP Interpretation: reviewed, normal General Appearance: no apparent distress, alert, GCS 15, non-toxic Head: normocephalic, atraumatic Eyes: bilateral eye normal inspection, bilateral eye PERRL ENT: hearing grossly normal, no angioedema, normal voice, other - no swelling of the lips or tongue, no stridor. Neck: full range of motion Respiratory: chest non-tender, lungs clear, normal breath sounds, no wheezing, speaking full sentences Cardiovascular #1: regular rate, rhythm Musculoskeletal: back normal, gait/station normal, normal range of motion, non- tender Neurologic: alert, oriented x3, responsive, motor strength/tone normal, sensory intact, speech normal, grossly normal Psychiatric: judgement/insight normal Skin: normal color, warm/dry, well hydrated, rash - diffuse papular rash on the bilateral forearms, upper arm, anterior chest and face. no blisters or vessicles Lymphatic: no adenopathy Medical Decision Making PA Attestation Dr. Lawton is my supervising Physician whom patient management has been discussed with. Diagnostic Impression: Primary Impression: Dermatitis ER Course 62-year-old female presents emergency department complaining of diffuse rash in the bilateral forearms as well as neck and face times several weeks. Patient reports she had some improvement with previously prescribed course of prednisone however after completion her symptoms have returned. Patient states she has not followed up for her condition. Pt. denies pain, fevers, chills or swollen tender lymph nodes. Denies lesions/rashes elsewhere on the body. Denies new medications or body washes or creams. Denies swelling of the lips, tongue , throat or airway. Denies wheezing, or shortness of breath. Denies recent travel, recent illness or ill contacts. denies blisters, oral lesions, or sloughing of the skin Ddx considered but are not limited to cellulitis, scabies, shingles, varicella, dermatitis, urticaria, eczema, tinea, viral exanthem, SJS Vital signs: are WNL, pt. is afebrile H&PE are most consistent with recurrence of dermatitis. no evidence of impending airway compromise or anaphylaxis. ORDERS: none required at this time, the diagnosis is clinical ED INTERVENTIONS: None required at this time. - D/w pt. that for a definitive dx she needs to see dermatology, I also recommended ALLERGY TESTING as she also can have re-contact with something she may have developed an allergy towards. d/w pt. conservative treatment, and to follow up with a primary care provider. pt given a list of primary care clinics for follow up. d/w pt. to return to the ED with worsening or new symptoms. DISCHARGE: At this time pt. is stable for d/c to home. Will provide printed patient care instructions, and any necessary prescriptions. Care plan and follow up instructions have been discussed with the patient prior to discharge. Last Vital Signs Date Time Temp Pulse Resp B/P (MAP) Pulse Ox O2 Delivery O2 Flow Rate FiO2 01/29/18 14:55 98.2 93 18 176/97 96 Room Air Disposition: HOME, SELF-CARE Condition: Stable Scripts Cetirizine Hcl* (ZYRTEC*) 10 Mg Tablet 10 MG ORAL DAILY, #30 TAB 0 Refills Prov: Claribel Toribio 01/29/18 Diphenhydramine Hcl (BENADRYL ALLERGY) 25 Mg Tablet 25 MG PO Q6HR, #30 TAB Prov: Claribel Toribio 01/29/18 Patient Instructions: Rash Additional Instructions: Take medications as directed. Follow up with a Primary Care Provider in 3-5 days for DERMATOLOGY REFERRAL + [employer]HALT PATCHER REFERRAL, even if your symptoms have resolved. Return sooner to ED if new symptoms occur, or current symptoms become worse. Do not drink alcohol, drive, or operate heavy machinery while taking Benadryl as this may cause drowsiness. - Please note that this Emergency Department Report was dictated using [employer] teacher technology software, occasionally this can lead to erroneous entry secondary to interpretation by the dictation equipment. Claribel Toribio Jan 29, 2018 15:16
[2018-01-29] MEDS ORDERED: ZYRTEC10 MG ORAL (15:17)
[2018-01-29] MEDS ORDERED: BENADRYL ALLERG25 M1 PO (15:17)
== END 2018-01-29 15:33 | disposition home or self-care (01) ==
LOC: EMR 15:31
DX: L30.9 Dermatitis, unspecified (principal); I10 Essential (primary) hypertension; E11.9 Type 2 diabetes mellitus without complications; K21.9 Gastro-esophageal reflux disease without esophagitis
CPT/HCPCS: 99282

== ENCOUNTER 2018-02-07 13:49 | Emergency (ER) | payer MEDICARE, MEDICAID ==
[~2018-02-07] VITALS: Ht 180.3 cm; Wt 125.6 kg
[~2018-02-07 13:49] MED LIST changes: +BENADRYL ALLERG25 M1 PO; +ZYRTEC10 MG ORAL
[2018-02-07] MEDS ORDERED: HYDROcodone/Acetamin 7.5/325 tab ORAL ONE (14:00)
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
[2018-02-07] MEDS ORDERED: VOLTAREN100 G1 TP (15:19)
[2018-02-07] MEDS ORDERED: NAPROXEN500 M2 ORAL (15:19)
[2018-02-07 15:26] VITALS: BP 123/75
--- NOTE | 2018-02-07 15:30 | Diagnostic Imaging Report ---
EXAM: XR Right Knee, 3 views CLINICAL HISTORY: PAIN TECHNIQUE: Three views of the right knee. COMPARISON: No relevant prior studies available. FINDINGS: Bones/joints: No acute fracture. No dislocation. There is marked tricompartmental osteoarthrosis of the right knee. This is most pronounced in the medial compartment where there is complete loss of joint space. Large osteophytes. Subchondral cystic change. Soft tissues: Joint effusion within the suprapatellar pouch. IMPRESSION: No fracture. Marked osteoarthrosis. Joint effusion.
== END 2018-02-07 15:30 | disposition home or self-care (01) ==
LOC: EMR 14:26
DX: S80.01XA Contusion of right knee, initial encounter (principal); S83.91XA Sprain of unspecified site of right knee, initial encounter; V18.0XXA Pedal cycle driver injured in noncollision transport accident in nontraffic accident, initial encounter; Y93.55 Activity, bike riding; Y92.9 Unspecified place or not applicable; I10 Essential (primary) hypertension; E11.9 Type 2 diabetes mellitus without complications; K21.9 Gastro-esophageal reflux disease without esophagitis; M17.11 Unilateral primary osteoarthritis, right knee
CPT/HCPCS: 99283

== ENCOUNTER 2018-07-05 08:33 | Emergency (ER) | payer MEDICARE, MEDICAID ==
[~2018-07-05] VITALS: Ht 180.3 cm; Wt 114.8 kg
[~2018-07-05 08:33] MED LIST changes: +NAPROXEN500 M2 ORAL; +VOLTAREN100 G1 TP
[2018-07-05 08:48] VITALS: BP 156/95
[2018-07-05] MEDS ORDERED: ZITHROMAX250 MG ORAL (09:22)
[2018-07-05] MEDS ORDERED: MUCINEX COLD-F177 M1 PO (09:22)
--- NOTE | 2018-07-05 09:23 | NUR ---
ED Nurse Note: Pt. AAOx4. ambulatory. came in to ER due to congetsion x few days with 01/14 sorethroat
--- NOTE | 2018-07-05 09:32 | Emergency Room Report ---
History of Present Illness General Chief Complaint: Upper Respiratory Illness Source: Patient Present Illness HPI Patient presents with complaints of sore throat ongoing for the past several days Pain with swallowing also has had recent cough and congestion Complains of mild body ache Denies any neck pain or photophobia Denies any vomiting or diarrhea Denies any recent travel or pleurisy patient is here with another patient with similar complaints of upper respiratory pathology Allergies: Coded Allergies: IODINE (Verified Allergy, Unknown, 08/05/16) Patient History Past Medical History: see triage record Pertinent Family History: none Last Menstrual Period: na Reviewed Nursing Documentation: PMH: Agreed; PSxH: Agreed Nursing Documentation-PMH Past Medical History: No History, Except For Hx Cardiac Problems: No - arthritis Hx Hypertension: Yes Hx Diabetes: Yes Hx Gastrointestinal Problems: Yes - GERD Review of Systems All Other Systems: negative except mentioned in HPI Physical Exam Vital Signs Date Time Temp Pulse Resp B/P (MAP) Pulse Ox O2 Delivery O2 Flow Rate FiO2 07/05/18 08:43 98.2 83 20 156/95 96 Room Air Sp02 EP Interpretation: reviewed, normal General Appearance: well appearing, no apparent distress Head: normocephalic, atraumatic Eyes: bilateral eye PERRL, bilateral eye EOMI ENT: hearing grossly normal, normal pharynx, TMs + canals normal, uvula midline Neck: full range of motion, supple, no meningismus, no bony tend Respiratory: lungs clear, normal breath sounds, no rhonchi, no respiratory distress, no retraction, no accessory muscle use Cardiovascular #1: normal peripheral pulses, regular rate, rhythm, no edema, no gallop, no JVD, no murmur Gastrointestinal: normal bowel sounds, non tender, soft, no mass, no organomegaly, non-distended, no guarding, no hernia, no pulsatile mass, no rebound Genitourinary: no CVA tenderness Musculoskeletal: normal inspection Neurologic: oriented x3, responsive, correctional facility psychiatrist III-XII nml as tested, motor strength/ tone normal, sensory intact Psychiatric: mood/affect normal Skin: normal color, no rash, warm/dry, palpation normal Lymphatic: normal inspection, no adenopathy Medical Decision Making Diagnostic Impression: Primary Impression: pharyngitis ER Course Multiple differentials are considered including but not limited to meningitis Retropharyngeal abscess flu symptoms patient's conical exam however is fairly benign There is some erythema with examination of the throat consideration for pharyngitis is made patient placed on antibiotics and requires close outpatient follow-up Last Vital Signs Date Time Temp Pulse Resp B/P (MAP) Pulse Ox O2 Delivery O2 Flow Rate FiO2 07/05/18 08:48 98.2 83 20 156/95 96 Room Air Status: unchanged Disposition: HOME, SELF-CARE Condition: Stable Scripts Phenylephrine/Dm/Acetaminop/Gg (MUCINEX [id number] LQ) 177 Ml Liquid 10 ML PO DAILY for 7 Days, #177 ML Prov: Leonora Reyes DO 07/05/18 Azithromycin* (ZITHROMAX*) 250 Mg Tablet 250 MG ORAL DAILY, #6 TAB 0 Refills Take two tables once daily for 1 day, then one tablet once daily for 4 days. Prov: Leonora Reyes DO 07/05/18 Referrals: NON PHYSICIAN (PCP) [facility] Patient Instructions: Pharyngitis, [id number] Additional Instructions: Patient is provided with the discharge instructions notified to follow up with primary doctor in the next 2-3 days otherwise return to the er with any worsening symptoms. Please note that this report is being documented using [employer] technology. This can lead to erroneous entry secondary to incorrect interpretation by the dictating instrument. Leonora Reyes DO Jul 05, 2018 09:32
[2018-07-05 10:00] VITALS: BP 156/95
--- NOTE | 2018-07-05 10:01 | NUR ---
ER DISCHARGE NOTE: Patient is cleared to be discharged per ERMD, pt is aox4, on room air, with stable vital signs. pt was given dc and prescription instructions, pt was able to verbalize understanding, pt is able to ambulate with steady gait. pt took all belongings.
== END 2018-07-05 10:01 | disposition home or self-care (01) ==
LOC: EMR 09:19
DX: J02.9 Acute pharyngitis, unspecified (principal); I10 Essential (primary) hypertension; E11.9 Type 2 diabetes mellitus without complications; K21.9 Gastro-esophageal reflux disease without esophagitis
CPT/HCPCS: 99282

== ENCOUNTER 2018-08-18 14:07 | Emergency (ER) | payer MEDICARE, MEDICAID ==
[~2018-08-18] VITALS: Ht 180.3 cm; Wt 116.1 kg
[~2018-08-18 14:07] MED LIST changes: +MUCINEX COLD-F177 M1 PO; +ZITHROMAX250 MG ORAL
[2018-08-18 14:25] VITALS: BP 162/97
--- NOTE | 2018-08-18 14:25 | NUR ---
ED Nurse Note: PT C/O THROAT PAIN AND HEADACHE FOR TWO DAYS, PT SHE TRIED GARGLING WITH WARM WATER WITH SALT BUT DOESNT HELP. ADITYA ROMERO ON BEDSIDE. WILL CONTINUE TO MONITOR
--- NOTE | 2018-08-18 14:56 | Emergency Room Report ---
History of Present Illness General Chief Complaint: Sore Throat Present Illness HPI 62-year-old female presents to the ED c/o : /10 in severity sore throat, recent mucus, and nasal congestion, and progressive sinus pressure RICHARDSON x 2 days. Denies fevers or chills.Denies ear pain, high fevers, lethargy, neck pain/ stiffness, irritability, photophobia dehydration, N/V/D. Denies Cp, Palpitations , LOC, AMS, seizures, paresthesias, or changes in Hearing or vision, no Sudden severe RICHARDSON. Denies hx of smoking, asthma or COPD. No modifying factors at this time. Allergies: Coded Allergies: IODINE (Verified Allergy, Unknown, 08/05/16) Patient History Past Medical History: see triage record Past Surgical History: none Pertinent Family History: none Now: No Reviewed Nursing Documentation: PMH: Agreed; PSxH: Agreed Nursing Documentation-PMH Hx Cardiac Problems: No - arthritis Hx Hypertension: Yes Hx Diabetes: Yes Hx Gastrointestinal Problems: Yes - GERD Review of Systems All Other Systems: negative except mentioned in HPI Physical Exam Vital Signs Date Time Temp Pulse Resp B/P (MAP) Pulse Ox O2 Delivery O2 Flow Rate FiO2 08/18/18 14:19 98.4 78 18 95 Room Air Sp02 EP Interpretation: reviewed, normal General Appearance: no apparent distress, alert, GCS 15, non-toxic Head: normocephalic, atraumatic Eyes: bilateral eye normal inspection, bilateral eye PERRL ENT: hearing grossly normal, normal pharynx, normal voice, TMs + canals normal , uvula midline, nasal congestion Neck: full range of motion Respiratory: chest non-tender, lungs clear, normal breath sounds, no respiratory distress, no accessory muscle use, no wheezing, speaking full sentences Cardiovascular #1: regular rate, rhythm Rectal: deferred Genitourinary: normal inspection Musculoskeletal: back normal, gait/station normal, normal range of motion, non- tender Neurologic: alert, oriented x3, responsive, motor strength/tone normal, sensory intact, speech normal, grossly normal Psychiatric: judgement/insight normal Skin: normal color, no rash, warm/dry, well hydrated Lymphatic: no adenopathy Medical Decision Making PA Attestation Dr. Lawton is my supervising Physician whom patient management has been discussed with. Diagnostic Impression: Primary Impression: Post-nasal drainage Additional Impression: Sinus pressure ER Course 62-year-old female presents to the ED c/o : 9/10 in severity sore throat, recent mucus, and nasal congestion, and progressive sinus pressure RICHARDSON x 2 days. Denies fevers or chills.Denies ear pain, high fevers, lethargy, neck pain/ stiffness, irritability, photophobia dehydration, N/V/D. Denies Cp, Palpitations , LOC, AMS, seizures, paresthesias, or changes in Hearing or vision, no Sudden severe RICHARDSON. Denies hx of smoking, asthma or COPD. No modifying factors at this time. Ddx considered but are not limited to: pharyngitis, strep, PROJECT INSPECTOR, ludwigs angina, URI Vital signs: are WNL, pt. is afebrile H&PE are most consistent with: pharyngitis secondary postnasal drainage/nasal congestion. ORDERS: None required at this time as the diagnosis is clinical ED INTERVENTIONS: none required at this time. -I do not identify an emergent condition at this time. With current presentation , pt. is stable for close outpatient follow up and conservative treatment. D/ w pt. to return promptly to ED with worsening or new symptoms.- Pt. verbalizes' understanding and agreement with proposed treatment plan. DISCHARGE: At this time pt. is stable for d/c to home. Will provide printed patient care instructions, and any necessary prescriptions. Care plan and follow up instructions have been discussed with the patient prior to discharge. Last Vital Signs Date Time Temp Pulse Resp B/P (MAP) Pulse Ox O2 Delivery O2 Flow Rate FiO2 08/18/18 14:19 98.4 78 18 95 Room Air Status: unchanged Disposition: HOME, SELF-CARE Condition: Stable Referrals: NON PHYSICIAN (PCP) Patient Instructions: Sore Throat Additional Instructions: Take medications as directed. Follow up with a Primary Care Provider in 3-5 days, even if your symptoms have resolved. --Please review list of primary care clinics, if you do not already have a primary care provider Return sooner to ED if new symptoms occur, or current symptoms become worse. - Please note that this Emergency Department Report was dictated using [employer]missionstobacco cutter technology software, occasionally this can lead to erroneous entry secondary to interpretation by the dictation equipment. Claribel Toribio August 18, 2018 14:56
[2018-08-18] MEDS ORDERED: GUAIFENESIN1200 MG PO (15:02)
[2018-08-18] MEDS ORDERED: ZYRTEC-D TABLE1 EACH ORAL (15:02)
[2018-08-18] MEDS ORDERED: AFRIN NASAL SPR30 ML NASAL (15:02)
[2018-08-18 15:13] VITALS: BP 162/97
--- NOTE | 2018-08-18 15:13 | NUR ---
ER DISCHARGE NOTE: Patient is cleared to be discharged per ERMD, pt is aox4, on room air, with stable vital signs. pt was given dc and prescription instructions, pt was able to verbalize understanding, pt id band removed without complications. pt is able to ambulate with steady gait. pt took all belongings.
== END 2018-08-18 15:13 | disposition home or self-care (01) ==
LOC: EMR 14:36
DX: R09.82 Postnasal drip (principal); R51 Headache; Z91.041 Radiographic dye allergy status; I10 Essential (primary) hypertension; E11.9 Type 2 diabetes mellitus without complications; K21.9 Gastro-esophageal reflux disease without esophagitis
CPT/HCPCS: 99281

== ENCOUNTER 2018-12-26 13:23 | Emergency (ER) | payer MEDICARE, MEDICAID ==
[~2018-12-26] VITALS: Ht 180.3 cm; Wt 113.4 kg
[~2018-12-26 13:23] MED LIST changes: +AFRIN NASAL SPR30 ML NASAL; +ZYRTEC-D TABLE1 EACH ORAL
--- NOTE | 2018-12-26 13:40 | NUR ---
ED Nurse Note: Pt walked in to ER. Per pt., she is feeling dizzy, has been having diarrhea and nausea x 3 days. Per pt. paramedics said her BP was low yesterday. Pt is A&O x4, V/S stable with no s/s of acute distress noted at this time. Pt reports hx of cholecystectomy as well as diabetes. Pt is in bed wearing a gown and connected to the boat washer.
[2018-12-26 13:41] VITALS: BP 146/82
[2018-12-26] MEDS ORDERED: Lidocaine 2% Visc 15ml soln ORAL ONE (13:45)
[2018-12-26] MEDS ORDERED: Mylanta II UD 30ml ORAL ONE (13:45)
[2018-12-26] MEDS ORDERED: D5NS 1,000 ML IV ONE (13:45)
--- NOTE | 2018-12-26 13:52 | Emergency Room Report ---
History of Present Illness General Chief Complaint: Diarrhea Source: Patient Present Illness HPI 63-year-old female presents with generalized abdominal pain diarrhea x3 days, chills, no nausea no vomiting no shortness of breath, she endorses achy abdominal pain that comes and goes no aggravating relieving factors severity is mild, intermittent lasting minutes, patient denies any chest pain shortness of breath. 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 transport to the hospital because she want to come to [facility] Allergies: Coded Allergies: IODINE (Verified Allergy, Unknown, 08/05/16) Patient History Past Medical History: see triage record Social History: Reports: smoking Reviewed Nursing Documentation: PMH: Agreed; PSxH: Agreed Nursing Documentation-PMH Hx Cardiac Problems: No - arthritis Hx Hypertension: Yes Hx Diabetes: Yes Hx Gastrointestinal Problems: Yes - GERD Review of Systems All Other Systems: negative except mentioned in HPI Physical Exam Vital Signs Date Time Temp Pulse Resp B/P (MAP) Pulse Ox O2 Delivery O2 Flow Rate FiO2 12/26/18 13:39 98.4 76 19 146/82 (103) 97 Room Air Sp02 EP Interpretation: reviewed, normal General Appearance: well appearing, no apparent distress, alert Head: normocephalic, atraumatic Eyes: bilateral eye PERRL, bilateral eye EOMI ENT: uvula midline, dry mucus membranes Neck: supple, thyroid normal, supple/symm/no masses Respiratory: lungs clear, no respiratory distress, no retraction, no accessory muscle use Cardiovascular #1: normal peripheral pulses, regular rate, rhythm, no edema, no gallop, no murmur Gastrointestinal: non tender, soft, no guarding, no rebound Musculoskeletal: normal inspection Neurologic: alert, oriented x3 Psychiatric: mood/affect normal Skin: no rash, warm/dry Medical Decision Making Diagnostic Impression: Primary Impression: Diarrhea Qualified Codes: R19.7 - Diarrhea, unspecified Additional Impressions: Abdominal pain Qualified Codes: R10.84 - Generalized abdominal pain UTI (urinary tract infection) Qualified Codes: N30.01 - Acute cystitis with hematuria ER Course 63-year-old female presents with generalized abdominal pain diarrhea x3 days, differential diagnosis includes viral gastroenteritis, appendicitis or diverticulitis Patient given GI cocktail with resolution of symptoms, rehydration Patient incidentally found to have a UTI will provide antibiotics, patient also found to have pneumobilia which may be secondary to the surgery she had in the past she had gallstones removed, she is currently having no right upper quadrant pain no white count low suspicion for cholangitis Disposition home with return precautions Laboratory Tests Test 12/26/18 14:25 12/26/18 15:24 White Blood Count 8.3 K/UL (4.8-10.8) Red Blood Count 4.01 M/UL (4.20-5.40) L Hemoglobin 12.2 G/DL (12.0-16.0) Hematocrit 36.8 % (37.0-47.0) L Mean Corpuscular Volume 92 FL (80-99) Mean Corpuscular Hemoglobin 30.4 PG (27.0-31.0) Mean Corpuscular Hemoglobin Concent 33.2 G/DL (32.0-36.0) Red Cell Distribution Width 12.1 % (11.6-14.8) Platelet Count 194 K/UL (150-450) Mean Platelet Volume 6.6 FL (6.5-10.1) Neutrophils (%) (Auto) 55.3 % (45.0-75.0) Lymphocytes (%) (Auto) 36.8 % (20.0-45.0) Monocytes (%) (Auto) 5.2 % (1.0-10.0) Eosinophils (%) (Auto) 2.0 % (0.0-3.0) Basophils (%) (Auto) 0.6 % (0.0-2.0) Prothrombin Time 10.1 SEC (9.30-11.50) Prothrombin Time INR 0.9 (0.9-1.1) PTT 26 SEC (23-33) Sodium Level 142 MMOL/L (136-145) Potassium Level 4.0 MMOL/L (3.5-5.1) Chloride Level 107 MMOL/L (98-107) Carbon Dioxide Level 27 MMOL/L (21-32) Anion Gap 8 mmol/L (5-15) Blood Urea Nitrogen 11 mg/dL (7-18) Creatinine 0.9 MG/DL (0.55-1.30) Estimate Glomerular Filtration Rate > 60 mL/min (>60) Glucose Level 99 MG/DL (74-106) Calcium Level 8.7 MG/DL (8.5-10.1) Total Bilirubin 0.4 MG/DL (0.2-1.0) Aspartate Amino Transferase (AST) 17 U/L (15-37) Alanine Aminotransferase (ALT) 28 U/L (12-78) Alkaline Phosphatase 77 U/L (46-116) Troponin I 0.000 ng/mL (0.000-0.056) Total Protein 6.8 G/DL (6.4-8.2) Albumin 3.4 G/DL (3.4-5.0) Globulin 3.4 g/dL Albumin/Globulin Ratio 1.0 (1.0-2.7) Lipase 207 U/L (73-393) Urine Color Yellow Urine Appearance Clear Urine pH 6 (4.5-8.0) Urine Specific [place] 1.015 (1.005-1.035) Urine Protein 1+ (NEGATIVE) H Urine Glucose (UA) Negative (NEGATIVE) Urine Ketones Negative (NEGATIVE) Urine Blood 2+ (NEGATIVE) H Urine Nitrite Negative (NEGATIVE) Urine Bilirubin Negative (NEGATIVE) Urine Urobilinogen Normal MG/DL (0.0-1.0) Urine Leukocyte Esterase 1+ (NEGATIVE) H Urine RBC Pending Urine WBC Pending Urine Squamous Epithelial Cells Pending Urine Bacteria Pending EKG Diagnostic Results EKG Time: 13:49 EP Interpretation: NSR,rate 74 qtc 452, no acute st elevations, normal axis Rhythm Strip Diag. Results Rhythm Strip Time: 13:52 EP Interpretation: yes Rate: 79 Rhythm: NSR, no PVC's, no ectopy Chest X-Ray Diagnostic Results Chest X-Ray Diagnostic Results : Chest X-Ray Ordered: Yes # of Views/Limited/Complete: 1 View Indication: Other - Abdominal pain EP Interpretation: Yes Interpretation: no consolidation, no effusion, no pneumothorax, no acute cardiopulmonary disease Impression: No acute disease Electronically Signed by: Galen Quintana MD CT/MRI/US Diagnostic Results CT/MRI/US Diagnostic Results : Impression Procedure: CT Abdomen Pelvis WO Contrast EXAM: CT Abdomen and Pelvis Without Intravenous Contrast CLINICAL HISTORY: ABD PAIN TECHNIQUE: Axial computed tomography images of the abdomen and pelvis without intravenous contrast. One or more of the following dose reduction techniques were used: automated exposure control, adjustment of the mA and or kV according to patient size, use of iterative reconstruction technique. CT DI: 18.6 DLP: 1050 COMPARISON: 8 18. FINDINGS: Lung bases demonstrate no acute infiltrate. Cholecystectomy. Sphincterotomy may explain pneumobilia. Correlate with history. No significant biliary dilation. No radiopaque intraductal stone. The pancreas, spleen, kidneys, and adrenal glands are within normal limits for noncontrast technique. Distal colonic diverticulosis without diverticulitis. No bowel obstruction or perforation. The appendix is unremarkable. Aortoiliac atherosclerosis without aneurysm. Fatty atrophy or lipoma to the right gluteus carol. Multilevel lumbar spondylosis. No acute fracture. IMPRESSION: Colonic diverticula without diverticulitis. Cholecystectomy. Pneumobilia should be correlated for history of sphincterotomy. Incidental findings as above. Dictated By: Galen De La Fuente MD Electronically Signed By: Galen De La Fuente MD Signed Date/Time 12/26/18 3426 CC: Galen Quintana MD Last Vital Signs Date Time Temp Pulse Resp B/P (MAP) Pulse Ox O2 Delivery O2 Flow Rate FiO2 12/26/18 13:41 98.4 76 19 146/82 97 Room Air Disposition: HOME, SELF-CARE Condition: Stable Scripts Dicyclomine Hcl* (DICYCLOMINE HCL*) 10 Mg Capsule 10 MG ORAL QID PRN for Abdominal cramps, #20 CAP Prov: Galen Quintana MD 12/26/18 Cephalexin* (CEPHALEXIN*) 500 Mg Tablet 500 MG ORAL EVERY 6 HOURS, #40 CAP Prov: Galen Quintana MD 12/26/18 Referrals: [facility]. [facility] Patient Instructions: Abdominal Pain, Adult, Diarrhea, Adult Additional Instructions: The patient was provided with discharge instructions, notified to follow-up with a primary care doctor and or specialist in the next 24-48 hours, and to return to the ED if they have worsening of their symptoms. Please note that this report is being documented using [employer] technology. This can lead to erroneous entry secondary to incorrect interpretation by the dictating instrument. PLEASE FOLLOW-UP WITH GASTROENTEROLOGY IN 24-48 HOURS. RETURN TO ED FOR FEVER CHILLS WORSENING OF YOUR CONDITION. Galen Quintana MD Dec 26, 2018 13:52
--- NOTE | 2018-12-26 14:03 | NUR ---
ED Nurse Note: Patient taken for CT scan.
[2018-12-26 14:37] LABS: BASOPHILS % (AUTO) 0.6 % (0.0-2.0); HEMATOCRIT 36.8 % (37.0-47.0); HEMOGLOBIN 12.2 G/DL (12.0-16.0); LYMPHOCYTES % (AUTO) 36.8 % (20.0-45.0); MEAN CORPUSCULAR VOLUME 92 FL (80-99); MONOCYTES % (AUTO) 5.2 % (1.0-10.0); NEUTROPHILS % (AUTO) 55.3 % (45.0-75.0); PLATELET COUNT 194 K/UL (150-450); RED BLOOD COUNT 4.01 M/UL (4.20-5.40); RED CELL DISTRIBUTION WIDTH 12.1 % (11.6-14.8); WHITE BLOOD COUNT 8.3 K/UL (4.8-10.8)
[2018-12-26 14:45] LABS: INR 0.9 (0.9-1.1)
[2018-12-26 14:47] LABS: ANION GAP 8 mmol/L (5-15); BLOOD UREA NITROGEN 11 mg/dL (7-18); CALCIUM 8.7 MG/DL (8.5-10.1); CARBON DIOXIDE 27 MMOL/L (21-32); CHLORIDE 107 MMOL/L (98-107); CREATININE 0.9 MG/DL (0.55-1.30); SODIUM 142 MMOL/L (136-145)
[2018-12-26 14:52] LABS: ALANINE AMINOTRANSFERASE 28 U/L (12-78); ALBUMIN 3.4 G/DL (3.4-5.0); ALKALINE PHOSPHATASE 77 U/L (46-116); ASPARTATE AMINO TRANSFERASE 17 U/L (15-37); BILIRUBIN,TOTAL 0.4 MG/DL (0.2-1.0)
--- NOTE | 2018-12-26 14:52 | Diagnostic Imaging Report ---
EXAM: XR Chest, 1 View CLINICAL HISTORY: ABD PAIN TECHNIQUE: Frontal view of the chest. COMPARISON: No relevant prior studies available. FINDINGS: Lungs: No consolidation. Pleural space: Unremarkable. No pneumothorax. Heart: Unremarkable. No cardiomegaly. Mediastinum: Unremarkable. Bones joints: No acute fracture. IMPRESSION: No acute cardiopulmonary disease.
[2018-12-26 15:34] LABS: APPEARANCE,URINE CLEAR; BILIRUBIN, URINE NEGATIVE (NEGATIVE); GLUCOSE, URINE (UA) NEGATIVE (NEGATIVE); KETONES,URINE NEGATIVE (NEGATIVE); LEUKOCYTE ESTERASE ,URINE 1+ (NEGATIVE); NITRITE,URINE NEGATIVE (NEGATIVE); PH,URINE 6 (4.5-8.0); PROTEIN,URINE 1+ (NEGATIVE); UROBILINOGEN,URINE NORMAL MG/DL (0.0-1.0)
[2018-12-26 15:38] LABS: COLOR,URINE YELLOW
--- NOTE | 2018-12-26 15:40 | Diagnostic Imaging Report ---
EXAM: CT Abdomen and Pelvis Without Intravenous Contrast CLINICAL HISTORY: ABD PAIN TECHNIQUE: Axial computed tomography images of the abdomen and pelvis without intravenous contrast. One or more of the following dose reduction techniques were used: automated exposure control, adjustment of the mA and or kV according to patient size, use of iterative reconstruction technique. CT DI: 18.6 DLP: 1050 COMPARISON: 11 30 17. FINDINGS: Lung bases demonstrate no acute infiltrate. Cholecystectomy. Sphincterotomy may explain pneumobilia. Correlate with history. No significant biliary dilation. No radiopaque intraductal stone. The pancreas, spleen, kidneys, and adrenal glands are within normal limits for noncontrast technique. Distal colonic diverticulosis without diverticulitis. No bowel obstruction or perforation. The appendix is unremarkable. Aortoiliac atherosclerosis without aneurysm. Fatty atrophy or lipoma to the right gluteus carol. Multilevel lumbar spondylosis. No acute fracture. IMPRESSION: Colonic diverticula without diverticulitis. Cholecystectomy. Pneumobilia should be correlated for history of sphincterotomy. Incidental findings as above.
[2018-12-26] MEDS ORDERED: DICYCLOMINE HCL10 MG ORAL (15:51)
[2018-12-26] MEDS ORDERED: CEPHALEXIN500 M1 ORAL (15:51)
[2018-12-26 16:17] VITALS: BP 137/71
--- NOTE | 2018-12-26 16:18 | NUR ---
ER DISCHARGE NOTE: Patient is cleared to be discharged per ERMD, pt is aox4, on room air, with stable vital signs. pt was given dc and prescription instructions, pt was able to verbalize understanding, pt id band and iv site removed without complications. pt is able to ambulate with steady gait. pt took all belongings.
--- NOTE | 2018-12-27 17:20 | Cardiology Report ---
APPROVED REPORT EKG Measurement Heart [id number] VT [id number] Normal sinus rhythm Normal ECG
== END 2018-12-26 16:18 | disposition home or self-care (01) ==
LOC: EMR 14:32
DX: R19.7 Diarrhea, unspecified (principal); R10.84 Generalized abdominal pain; N30.01 Acute cystitis with hematuria; Z87.891 Personal history of nicotine dependence; I10 Essential (primary) hypertension; K21.9 Gastro-esophageal reflux disease without esophagitis; E11.9 Type 2 diabetes mellitus without complications; K57.90 Diverticulosis of intestine, part unspecified, without perforation or abscess without bleeding; Z90.49 Acquired absence of other specified parts of digestive tract
CPT/HCPCS: 36415; 71045; 74176; 80053; 81003; 83690; 84484; 85025; 85610; 85730; 87086; 93005; 96361; 96365; 96375; 99284; J2405; S0028

== ENCOUNTER → 2019-04-22 | Emergency (ER) | payer MEDICARE, MEDICAID ==
[~2019-04-22] VITALS: Ht 180.3 cm; Wt 104.3 kg
[~2019-04-22] MED LIST changes: +ALBUTEROL2.5 MG/3 M INH; +CEPHALEXIN500 M1 ORAL; +DICYCLOMINE HCL10 MG ORAL; +GUAIFENESI100 MG/5 M ORAL; +TESSALON PERLE100 MG ORAL
[2019-04-22 13:27] VITALS: BP 152/92
--- NOTE | 2019-04-22 13:34 | NUR ---
ED Nurse Note: Pt ambulated into ED from home CO dry cough, white mucus and sore throat x2 wks. pt did not take HTN med today. BP at triage 152/95mmHg.
--- NOTE | 2019-04-22 13:50 | NUR ---
ED Nurse Note: ERMD at bedside
--- NOTE | 2019-04-22 14:04 | NUR ---
ED Nurse Note: rt AT BEDSIDE
--- NOTE | 2019-04-22 14:04 | NUR ---
ED Nurse Note: Xray at bedside
[2019-04-22] MEDS: Albuterol/Ipratropium 3ml neb HHN SCH (14:11)
--- NOTE | 2019-04-22 14:12 | NUR ---
ED Nurse Note: XRAY COMPLETED; PENDING RESULTS
--- NOTE | 2019-04-22 14:26 | Diagnostic Imaging Report ---
Indication: Cough Technique: One view of the chest Comparison: 12/26/2018 Findings: No acute infiltrates, effusions, or congestion. Tortuous calcified aorta. Normal heart size. Upper mediastinum unremarkable. No significant interim change Impression: No acute process.
--- NOTE | 2019-04-22 15:15 | Emergency Room Report ---
History of Present Illness General Chief Complaint: Flu Like Symptoms Source: Patient Present Illness HPI 63-year-old female with history of asthma and diabetes currently controlled here complaining of 2 weeks of cough and congestion with phlegm production. Patient is a heavy tobacco smoker. Complains of wheezing at nighttime. Complains of chest tightness however denies chest pain pain radiation. Has not taken medication for symptom relief. Denies recent travel, fever and chills, abdominal pain, nausea vomiting. Denies vaping, drug use, alcohol intake. Allergies: Coded Allergies: IODINE (Verified Allergy, Unknown, 08/05/16) Patient History Past Medical History: see triage record Past Surgical History: unable to obtain Pertinent Family History: none Now: No Immunizations: UTD Reviewed Nursing Documentation: PMH: Agreed; PSxH: Agreed Nursing Documentation-PMH Past Medical History: No History, Except For Hx Cardiac Problems: No - arthritis Hx Hypertension: Yes Hx Diabetes: Yes Hx Gastrointestinal Problems: Yes - GERD Review of Systems All Other Systems: negative except mentioned in HPI Physical Exam Vital Signs Date Time Temp Pulse Resp B/P (MAP) Pulse Ox O2 Delivery O2 Flow Rate FiO2 04/22/19 13:27 98.4 93 17 152/92 (112) 96 Room Air 04/22/19 14:12 21 Sp02 EP Interpretation: reviewed, normal General Appearance: no apparent distress, alert, GCS 15, non-toxic Head: normocephalic, atraumatic Eyes: bilateral eye normal inspection, bilateral eye PERRL ENT: hearing grossly normal, normal pharynx, no angioedema, normal voice Neck: full range of motion, supple, thyroid normal, no meningismus, no bony tend, supple/symm/no masses Respiratory: chest non-tender, no rhonchi, no respiratory distress, no retraction, no accessory muscle use, speaking full sentences, wheezing Cardiovascular #1: regular rate, rhythm, no edema, no gallop, no murmur, no rub , normal capillary refill Gastrointestinal: normal bowel sounds, non tender, soft, non-distended, no guarding, no rebound Rectal: deferred Genitourinary: no CVA tenderness Musculoskeletal: back normal, normal range of motion, no calf tenderness, gait/ station normal, non-tender Neurologic: alert, motor strength/tone normal, oriented x3, sensory intact, responsive, speech normal Psychiatric: judgement/insight normal, memory normal, mood/affect normal, no suicidal/homicidal ideation Skin: no rash Lymphatic: no adenopathy Medical Decision Making PA Attestation All my diagnosis and treatment plans were reviewed ad discussed with my supervising physician Dr. Reyes Diagnostic Impression: Primary Impression: Acute bacterial bronchitis ER Course 63-year-old female with history of asthma and diabetes currently controlled here complaining of 2 weeks of cough and congestion with phlegm production. Patient is a heavy tobacco smoker. Complains of wheezing at nighttime. Complains of chest tightness however denies chest pain pain radiation. Has not taken medication for symptom relief. Denies recent travel, fever and chills, abdominal pain, nausea vomiting. Denies vaping, drug use, alcohol intake. Ddx considered but are not limited to: bronchitis, PNA, URI viral, bacterial bronchitis Vital signs: are WNL, pt. is afebrile H&PE are most consistent with: Tai bronchitis due to tobacco smoke status ORDERS: Chest x-ray, azithromycin, Tessalon Perles, guaifenesin, albuterol inhaler ED INTERVENTIONS: Albuterol ipratropium breathing treatment DISCHARGE: At this time pt. is stable for d/c to home. Will provide printed patient care instructions, and any necessary prescriptions. Care plan and follow up instructions have been discussed with the patient prior to discharge. Patient take medication as directed, follow with primary care provider, avoid smoking, if worsening symptoms return to emergency room. Patient reports that she feels much better after the treatment Chest X-Ray Diagnostic Results Chest X-Ray Diagnostic Results : Chest X-Ray Ordered: Yes # of Views/Limited/Complete: 1 View Indication: Shortness of Breath EP Interpretation: Yes ADITYA Xray: Interpretation reviewed, by supervising MD, and agrees with findings. Interpretation: no consolidation, no effusion, no pneumothorax Impression: No acute disease Electronically Signed by: Shital Curtis PA-C Last Vital Signs Date Time Temp Pulse Resp B/P (MAP) Pulse Ox O2 Delivery O2 Flow Rate FiO2 04/22/19 14:45 98 20 98 04/22/19 14:12 Room Air 21 04/22/19 13:27 98.4 152/92 (112) Disposition: HOME, SELF-CARE Condition: Stable Scripts Albuterol Sulfate* (ALBUTEROL SULFATE HHN*) 2.5 Mg/3 Ml Vial.neb 3 ML INH Q6H PRN for Shortness of Breath, #30 EA 0 Refills Prov: Shital Lacey 04/22/19 Guaifenesin* (GUAIFENESIN*) 100 Mg/5 Ml Liquid 5 ML ORAL Q6H, #120 ML 0 Refills Prov: Shital Lacey 04/22/19 Benzonatate* (TESSALON PERLE*) 100 Mg Capsule 100 MG ORAL THREE TIMES A DAY, #21 PERLE Prov: Shital Lacey 04/22/19 Azithromycin* (ZITHROMAX*) 250 Mg Tablet 250 MG ORAL DAILY, #6 TAB 0 Refills Take two tables once daily for 1 day, then one tablet once daily for 4 days. Prov: Shital Lacey 04/22/19 Patient Instructions: Acute Bronchitis, Titn-ni-Ppoz, Shortness of Breath, Easy -to-Read Shital Lacey Apr 22, 2019 15:15
== END | disposition home or self-care (01) ==
LOC: EMR 14:04
DX: J20.8 Acute bronchitis due to other specified organisms (principal); I10 Essential (primary) hypertension; E11.9 Type 2 diabetes mellitus without complications; K21.9 Gastro-esophageal reflux disease without esophagitis; M19.90 Unspecified osteoarthritis, unspecified site; F17.200 Nicotine dependence, unspecified, uncomplicated; Z91.09 Other allergy status, other than to drugs and biological substances
CPT/HCPCS: 71045; 99284; J7512; J7620

== ENCOUNTER 2019-10-18 21:22 | Emergency (ER) | payer MEDICARE, MEDICAID ==
[~2019-10-18] VITALS: Ht 180.3 cm; Wt 102.1 kg
[~2019-10-18 21:22] MED LIST changes: +OMEPRAZOLE20 M3 ORAL; +ONDANSETRON ODT4 MG BC
[2019-10-18 21:39] VITALS: BP 118/67
[2019-10-18] MEDS ORDERED: TIZANIDINE HCL4 MG ORAL (21:40)
[2019-10-18] MEDS ORDERED: Ketorolac 30mg Inj IV ONE (22:00)
--- NOTE | 2019-10-18 22:00 | Emergency Room Report ---
History of Present Illness General Chief Complaint: Abdominal Pain Source: Patient, Medical Record Present Illness HPI This is a 64-year-old female with a history of high blood pressure. She presents with chief complaint of abdominal pain. Onset for last 4 days now. Pain is sharp and crampy in nature. Pain is diffuse but today mostly epigastric. She has watery diarrhea. No vomiting. She said that she has been having subjective fever and chills. No cough or congestion. Pain is sharp and crampy. 7 out of 10. Diarrhea is watery. Nothing made it better. Nothing made it worse. Allergies: Coded Allergies: IODINE (Verified Allergy, Unknown, 08/05/16) COVID-19 Screening Contact w/high risk pt: No Experienced COVID-19 symptoms?: No COVID-19 Testing performed DIETARY MANAGER: No Patient History Past Medical History: HTN Last Menstrual Period: n/a Nursing Documentation-PMH Hx Cardiac Problems: No - arthritis Hx Hypertension: Yes Hx Pacemaker: No Hx Asthma: No Hx COPD: No Hx Diabetes: Yes Hx Cancer: No Hx Gastrointestinal Problems: Yes - GERD Hx Dialysis: No Hx Neurological Problems: No Hx Cerebrovascular Accident: No Hx Seizures: No Review of Systems Constitutional: Reports: chills, fever Eye: Denies: eye pain, blurred vision ENT: Denies: ear pain, nose congestion, throat swelling Respiratory: Denies: cough, shortness of breath Cardiovascular: Denies: chest pain, palpitations Gastrointestinal: Reports: abdominal pain, diarrhea; Denies: nausea, vomiting Musculoskeletal: Denies: back pain, joint pain Skin: Denies: rash Neurological: Denies: headache, numbness Endocrine: Denies: increased thirst, increased urine Hematologic/Lymphatic: Denies: easy bruising All Other Systems: negative except mentioned in HPI Physical Exam Vital Signs Date Time Temp Pulse Resp B/P (MAP) Pulse Ox O2 Delivery O2 Flow Rate FiO2 10/18/19 21:30 99.7 92 19 163/98 (119) 96 Room Air Vitals with low-grade fever. Repeat blood pressure normal. Sp02 EP Interpretation: reviewed, normal General Appearance: well appearing, no apparent distress, alert Head: normocephalic, atraumatic Eyes: bilateral eye PERRL, bilateral eye EOMI ENT: hearing grossly normal, normal pharynx Neck: full range of motion, supple, no meningismus Respiratory: chest non-tender, lungs clear, normal breath sounds Cardiovascular #1: regular rate, rhythm, no murmur Gastrointestinal: no mass, no organomegaly, no bruit, non-distended, abnormal bowel sounds - Hyperactive gurgling sounds, tenderness - Mild upper quadrant tenderness Musculoskeletal: back normal, normal range of motion, gait/station normal Psychiatric: mood/affect normal Medical Decision Making Diagnostic Impression: Primary Impression: Abdominal pain Qualified Codes: R10.84 - Generalized abdominal pain Additional Impressions: Diarrhea Qualified Codes: R19.7 - Diarrhea, unspecified UTI (urinary tract infection) Qualified Codes: N30.00 - Acute cystitis without hematuria ER Course Presents with abdominal pain and diarrhea. Most likely viral in nature. Because of the COVID pandemic, this may be a symptom of COVID infection. COVID testing was sent. No evidence of acute abdomen or obstruction. No evidence of diverticulitis. Will discharge home. This patient was evaluated in the context of the global COVID-19 pandemic, which necessitated consideration that the patient might be at risk for infection with the [id number] virus that causes COVID-19. Institutional protocols and algorithms that pertain to the evaluation of patients at risk for COVID-19 and the state of rapid change based on information released by multiple regulatory bodies including the CDC and federal and state organizations. These policies and algorithms were followed during the patient' s care in the ED. CT/MRI/US Diagnostic Results CT/MRI/US Diagnostic Results : Imaging Test Ordered: CT abdomen and pelvis Impression No acute process per radiologist Last Vital Signs Date Time Temp Pulse Resp B/P (MAP) Pulse Ox O2 Delivery O2 Flow Rate FiO2 10/18/19 21:39 99.7 89 19 118/67 96 Room Air Status: improved Disposition: HOME, SELF-CARE Condition: Stable Scripts Ciprofloxacin Hcl* (CIPROFLOXACIN HCL*) 500 Mg Tablet 500 MG ORAL Q12H, #14 TAB 0 Refills Prov: Elmer Ortiz MD 10/18/19 Patient Instructions: Abdominal Pain, Adult Additional Instructions: A COVID testing was done. We will call you in 2 to 3 days with results. Follow up with your doctor in 7 days. Return if symptoms worsen. Elmer Ortiz MD Oct 18, 2019 22:00
[2019-10-18 22:08] LABS: APPEARANCE,URINE SLIGHTLY CLOUDY; BASOPHILS % (AUTO) 0.6 % (0.0-2.0); BILIRUBIN, URINE NEGATIVE (NEGATIVE); COLOR,URINE YELLOW; GLUCOSE, URINE (UA) NEGATIVE (NEGATIVE); HEMATOCRIT 44.2 % (37.0-47.0); HEMOGLOBIN 13.9 G/DL (12.0-16.0); KETONES,URINE NEGATIVE (NEGATIVE); LEUKOCYTE ESTERASE ,URINE 1+ (NEGATIVE); MEAN CORPUSCULAR VOLUME 94 FL (80-99); MONOCYTES % (AUTO) 6.1 % (1.0-10.0); NEUTROPHILS % (AUTO) 71.3 % (45.0-75.0); NITRITE,URINE NEGATIVE (NEGATIVE); PH,URINE 7 (4.5-8.0); PLATELET COUNT 217 K/UL (150-450); PROTEIN,URINE NEGATIVE (NEGATIVE); RED BLOOD COUNT 4.68 M/UL (4.20-5.40); RED CELL DISTRIBUTION WIDTH 12.7 % (11.6-14.8); UROBILINOGEN,URINE 4 MG/DL (0.0-1.0); WHITE BLOOD COUNT 9.5 K/UL (4.8-10.8)
[2019-10-18 22:14] LABS: ANION GAP 10 mmol/L (5-15); BLOOD UREA NITROGEN 12 mg/dL (7-18); CALCIUM 8.5 MG/DL (8.5-10.1); CARBON DIOXIDE 28 MMOL/L (21-32); CHLORIDE 102 MMOL/L (98-107); CREATININE 0.9 MG/DL (0.55-1.30); POTASSIUM 3.3 MMOL/L (3.5-5.1); SODIUM 140 MMOL/L (136-145)
[2019-10-18 22:24] LABS: ALANINE AMINOTRANSFERASE 11 U/L (12-78); ALBUMIN 4.2 G/DL (3.4-5.0); ALBUMIN/GLOBULIN RATIO 1.1 (1.0-2.7); ALKALINE PHOSPHATASE 85 U/L (46-116); ASPARTATE AMINO TRANSFERASE 18 U/L (15-37)
--- NOTE | 2019-10-18 22:53 | Diagnostic Imaging Report ---
CT abdomen pelvis without contrast History: Abdominal pain Comparison: 12/26/2018 Technique: Axial noncontrast CT of the abdomen and pelvis with coronal, sagittal reformatted images. CTDI is 12.4 mGy and DLP is 713.6 mGy-cm. Technique more: One or more of the following dose reduction techniques were used: automated exposure control, adjustment of the mA and/or kV according to patient size, use of iterative reconstruction technique. Findings: Lung bases: Normal Distal heart and esophagus: Normal Liver: No intrahepatic lesion or ductal dilation. Gallbladder: Status post cholecystectomy. Spleen: Borderline enlarged. Pancreas: Normal Adrenals: Normal Kidneys: Negative for hydronephrosis or stones. Aorta: Normal caliber with mild peripheral atherosclerosis. Lymph nodes: Small nonenlarged gastrohepatic ligament, celiac axis small lymph nodes. Negative for any significant retroperitoneal, pelvic sidewall or inguinal lymphadenopathy. Body wall: Tiny periumbilical fat containing hernia. Incidental note made of a lipoma within the mid right gluteus carol muscle measuring 7. 7 cm transverse, 2.6 cm AP, 5.7 cm CC. Bowel: Sigmoid and left-sided diverticulosis. Negative for diverticulitis. Normal appendix. Caliber of the small bowel loops is normal. Pelvis: No pelvic free fluid or mass. Uterus is identified. Bones: No lytic or blastic bony lesion. L4-5, L5-S1 disc space narrowing. L3-4, L4-5 and L5-S1 facet arthropathy. Severe left greater than right L5-S1 neural foramina stenosis. Impression: 1. Status post cholecystectomy. 2. Left-sided and sigmoid diverticulosis. Negative for diverticulitis. 3. Stable right gluteal lipoma
[2019-10-18] MEDS ORDERED: CIPROFLOXACIN500 M2 ORAL (22:59)
[2019-10-18 23:09] VITALS: BP 118/67
== END 2019-10-18 23:09 | disposition home or self-care (01) ==
LOC: EMR 22:17
DX: R10.84 Generalized abdominal pain (principal); R19.7 Diarrhea, unspecified; N30.00 Acute cystitis without hematuria; Z91.041 Radiographic dye allergy status; I10 Essential (primary) hypertension; K21.9 Gastro-esophageal reflux disease without esophagitis; E11.9 Type 2 diabetes mellitus without complications; Z90.49 Acquired absence of other specified parts of digestive tract; K57.30 Diverticulosis of large intestine without perforation or abscess without bleeding; D17.39 Benign lipomatous neoplasm of skin and subcutaneous tissue of other sites
CPT/HCPCS: 36415; 74176; 80053; 81003; 82962; 83690; 85025; 96361; 96374; 99284; J1885; J7030

== ENCOUNTER 2020-01-28 12:33 | Emergency (ER) | payer MEDICARE, MEDICAID ==
[~2020-01-28] VITALS: Ht 180.3 cm; Wt 104.3 kg
[~2020-01-28 12:33] MED LIST changes: +CIPROFLOXACIN500 M2 ORAL; +TIZANIDINE HCL4 MG ORAL
[2020-01-28 13:02] VITALS: BP 156/99
--- NOTE | 2020-01-28 13:02 | NUR ---
ED Nurse Note: Pt walked in to ED c/o vaginal itching and odor x2 weeks after having sexual contact with someone. Denies pain/ swelling to the area. AAOx4, verbally responsive. No SOB, on room air. ERMD at bedside.
[2020-01-28 13:31] LABS: APPEARANCE,URINE CLEAR; BILIRUBIN, URINE 1+ (NEGATIVE); COLOR,URINE BROWN; GLUCOSE, URINE (UA) NEGATIVE (NEGATIVE); KETONES,URINE 1+ (NEGATIVE); LEUKOCYTE ESTERASE ,URINE 3+ (NEGATIVE); NITRITE,URINE NEGATIVE (NEGATIVE); PH,URINE 6.5 (4.5-8.0); PROTEIN,URINE 1+ (NEGATIVE); UROBILINOGEN,URINE 4 MG/DL (0.0-1.0)
[2020-01-28] MEDS ORDERED: CEPHALEXIN500 MG ORAL ×2 (14:35→14:42)
[2020-01-28 14:45] VITALS: BP 148/87
[2020-01-28] MEDS ORDERED: Lidocaine 1% MPF 10mg/ml 5ml INJ ONE (14:45)
[2020-01-28] MEDS ORDERED: Azithromycin 250mg tab ORAL ONE (14:45)
--- NOTE | 2020-01-28 14:45 | NUR ---
ED Nurse Note: Pt cleared by ERMD for discharge. DC instructions/prescription was given and explained to pt and verbalized understanding of teachings. All medical deviecs such as ID band removed. Pt is AAO x4, ambulatory and left with all personal belongings.
--- NOTE | 2020-01-28 15:10 | Emergency Room Report ---
History of Present Illness General Chief Complaint: Vaginal Source: Patient Present Illness HPI 64-year-old female presents for evaluation. States she has been having vaginal discharge for the last 3 days. Feels like it is very itchy. Denies any dysuria. Denies any pain. Also notes redness to her left arm. Notes unprotected sex. No other aggravating relieving factors. Denies any other associated symptoms Allergies: Coded Allergies: IODINE (Verified Allergy, Unknown, 08/05/16) COVID-19 Screening Contact w/high risk pt: No Experienced COVID-19 symptoms?: No COVID-19 Testing performed GIZZARD PEELER: No Patient History Past Medical History: DM, HTN, GERD Past Surgical History: none Pertinent Family History: none Social History: Denies: smoking, alcohol use, drug use Now: No Immunizations: UTD Reviewed Nursing Documentation: PMH: Agreed; PSxH: Agreed Nursing Documentation-PMH Hx Cardiac Problems: No - arthritis Hx Hypertension: Yes Hx Pacemaker: No Hx Asthma: No Hx COPD: No Hx Diabetes: Yes Hx Cancer: No Hx Gastrointestinal Problems: Yes - GERD Hx Dialysis: No Hx Neurological Problems: No Hx Cerebrovascular Accident: No Hx Seizures: No Review of Systems All Other Systems: negative except mentioned in HPI Physical Exam Vital Signs Date Time Temp Pulse Resp B/P (MAP) Pulse Ox O2 Delivery O2 Flow Rate FiO2 01/28/20 12:57 98.8 87 19 156/99 (118) 95 Room Air Sp02 EP Interpretation: reviewed, normal General Appearance: no apparent distress, alert, GCS 15, non-toxic Head: normocephalic, atraumatic Eyes: bilateral eye normal inspection, bilateral eye PERRL ENT: hearing grossly normal, normal pharynx, no angioedema, normal voice Neck: full range of motion, supple/symm/no masses Respiratory: chest non-tender, lungs clear, normal breath sounds, speaking full sentences Cardiovascular #1: regular rate, rhythm, no edema Cardiovascular #2: 2+ carotid (R), 2+ carotid (L), 2+ radial (R), 2+ radial (L), 2+ dorsalis pedis (R), 2+ dorsalis pedis (L) Gastrointestinal: normal bowel sounds, non tender, soft, non-distended, no guarding, no rebound Rectal: deferred Genitourinary: normal inspection, no CVA tenderness, other - Visual Training Aide present. White discharge noted. No CMT Musculoskeletal: back normal, normal range of motion, gait/station normal, non- tender Neurologic: alert, motor strength/tone normal, oriented x3, sensory intact, responsive, speech normal Psychiatric: judgement/insight normal, memory normal, mood/affect normal, no suicidal/homicidal ideation Reflexes: 3+ bicep (R), 3+ bicep (L), 3+ tricep (R), 3+ tricep (L), 3+ knee (R), 3+ knee (L) Lymphatic: no adenopathy Medical Decision Making Diagnostic Impression: Primary Impression: Cellulitis Qualified Codes: L03.114 - Cellulitis of left upper limb Additional Impression: Cervicitis ER Course Hospital Course 64-year-old female presents with vaginal discharge. Unprotected sex Differential diagnoses include: Cervicitis, UTI, yeast infection, STD Clinical course Patient placed on stretcher in ED. After initial history, physical exam reveals a middle-aged female in no acute distress. Pelvic exam-fur floor worker present, os is closed, no CMT, no adnexal tenderness. There is white discharge noted. UA no bacteria. Wet mount shows no clue cells no trichomonas. Findings with patient. We will treat clinically for presumed STI. Given Rocephin and azithromycin ED. Will discharge with Keflex for cellulitis on the arm. Safe for discharge close outpatient follow-up. I will provide referrals Diagnosis -cellulitis, cervicitis Stable and discharged to home with Rx Keflex. Followup with PMD/FIRE SAFETY INSPECTOR. Return to ED if symptoms recur or worsen Laboratory Tests Test 01/28/20 13:16 Urine Color Brown Urine Appearance Clear Urine pH 6.5 (4.5-8.0) Urine Specific [place] 1.010 (1.005-1.035) Urine Protein 1+ (NEGATIVE) H Urine Glucose (UA) Negative (NEGATIVE) Urine Ketones 1+ (NEGATIVE) H Urine Blood 2+ (NEGATIVE) H Urine Nitrite Negative (NEGATIVE) Urine Bilirubin 1+ (NEGATIVE) H Urine Ictotest Negative (NEGATIVE) Urine Urobilinogen 4 MG/DL (0.0-1.0) H Urine Leukocyte Esterase 3+ (NEGATIVE) H Urine RBC 5-10 /HPF (0 - 2) H Urine WBC 2-4 /HPF (0 - 2) Urine Squamous Epithelial Cells Moderate /LPF (NONE/OCC) H Urine Bacteria Few /HPF (NONE) Urine Mucus Few /LPF (NONE/OCC) H Last Vital Signs Date Time Temp Pulse Resp B/P (MAP) Pulse Ox O2 Delivery O2 Flow Rate FiO2 01/28/20 14:45 98.8 74 15 148/87 96 Room Air Status: improved Disposition: HOME, SELF-CARE Condition: Stable Scripts Cephalexin* (KEFLEX*) 500 Mg Capsule 500 MG ORAL EVERY 6 HOURS for 7 Days, #28 CAP Prov: Rik Robles MD 01/28/20 Referrals: NON PHYSICIAN (PCP) Klaus Rubi Comp. [facility] Patient Instructions: Cervicitis, [id number] Rik Robles MD Jan 28, 2020 15:10
== END 2020-01-28 14:45 | disposition home or self-care (01) ==
LOC: EMR 13:31
DX: N72 Inflammatory disease of cervix uteri (principal); L03.114 Cellulitis of left upper limb; K21.9 Gastro-esophageal reflux disease without esophagitis; I10 Essential (primary) hypertension; E11.9 Type 2 diabetes mellitus without complications; M19.90 Unspecified osteoarthritis, unspecified site
CPT/HCPCS: 81003; 87210; 96372; 99283; J0696

== ENCOUNTER 2020-02-07 12:55 | Emergency (ER) | payer MEDICARE, MEDICAID ==
[~2020-02-07] VITALS: Ht 180.3 cm; Wt 106.6 kg
[2020-02-07 13:04] VITALS: BP 143/91
--- NOTE | 2020-02-07 13:04 | NUR ---
ED Nurse Note: Pt walked in to ED c/o insect bite to left arm x1 week. Report itchiness and painful to touch. Pt has been applying otc cream but no relief. AAOx4, verbally responsive. No SOB, on room air.
[2020-02-07] MEDS ORDERED: DiphenhydrAMINE 50mg/ml Inj IM ONE (13:30)
--- NOTE | 2020-02-07 13:52 | Emergency Room Report ---
History of Present Illness General Chief Complaint: Skin Rash/Abscess Source: Patient Present Illness HPI 64-year-old female presents to the emergency department complaining of 6 out of 10 severity pain and itching to localized insect bite on the left arm x5 days. Patient reports symptoms to be progressive. Patient reports she now feels warmth in the area. Patient states she has not taken any medications in an attempt to relieve her symptoms. Patient reports he is up-to-date with tetanus vaccines. Pt. denies fevers, chills or swollen tender lymph nodes. Denies lesions/rashes elsewhere on the body. Denies new medications or body washes or creams. Denies swelling of the lips, tongue , throat or airway. Denies wheezing, or shortness of breath. Denies recent travel, recent illness or ill contacts. denies blisters, oral lesions, or sloughing of the skin Allergies: Coded Allergies: IODINE (Verified Allergy, Unknown, 08/05/16) COVID-19 Screening Contact w/high risk pt: No Experienced COVID-19 symptoms?: No COVID-19 Testing performed ORACLE DRM CONSULTANT: Yes - months ago COVID-19 Screening: Negative COVID-19 COVID-19 [place] [facility] [place] Past Medical History: see triage record Past Surgical History: none Pertinent Family History: none Now: No Immunizations: UTD Reviewed Nursing Documentation: PMH: Agreed; PSxH: Agreed Nursing Documentation-PMH Hx Cardiac Problems: No - arthritis Hx Hypertension: Yes Hx Pacemaker: No Hx Asthma: No Hx COPD: No Hx Diabetes: Yes Hx Cancer: No Hx Gastrointestinal Problems: Yes - GERD Hx Dialysis: No Hx Neurological Problems: No Hx Cerebrovascular Accident: No Hx Seizures: No Review of Systems All Other Systems: negative except mentioned in HPI Physical Exam Vital Signs Date Time Temp Pulse Resp B/P (MAP) Pulse Ox O2 Delivery O2 Flow Rate FiO2 02/07/20 12:59 98.4 80 19 143/91 (108) 98 Room Air Sp02 EP Interpretation: reviewed, normal General Appearance: no apparent distress, alert, GCS 15, non-toxic Head: normocephalic, atraumatic Eyes: bilateral eye normal inspection, bilateral eye PERRL ENT: hearing grossly normal, normal voice Neck: full range of motion Respiratory: lungs clear, normal breath sounds, no wheezing, speaking full sentences Cardiovascular #1: regular rate, rhythm, normal capillary refill Musculoskeletal: back normal, normal range of motion, gait/station normal, non- tender Neurologic: alert, motor strength/tone normal, oriented x3, sensory intact, responsive, speech normal Psychiatric: judgement/insight normal Skin: rash - Posterior aspect of the left UE --Large indurated area of eryth nona, warmth and swelling. NO palpable fluctuance. no blisters or vessicles Medical Decision Making PA Attestation Dr. Constantino is my supervising Physician whom patient management has been discussed with. Diagnostic Impression: Primary Impression: Infected insect bite Qualified Codes: W57.XXXA - Bitten or stung by nonvenomous insect and other nonvenomous arthropods, initial encounter ER Course 64-year-old female presents to the emergency department complaining of 6 out of 10 severity pain and itching to localized insect bite on the left arm x5 days. Patient reports symptoms to be progressive. Patient reports she now feels warmth in the area. Patient states she has not taken any medications in an attempt to relieve her symptoms. Patient reports he is up-to-date with tetanus vaccines. Pt. denies fevers, chills or swollen tender lymph nodes. Denies lesions/rashes elsewhere on the body. Denies new medications or body washes or creams. Denies swelling of the lips, tongue , throat or airway. Denies wheezing, or shortness of breath. Denies recent travel, recent illness or ill contacts. denies blisters, oral lesions, or sloughing of the skin Ddx considered but are not limited to cellulitis, scabies, insect bites, tic bites, spider bites, contact dermatitis, Drug reaction, allergic reaction, fungal infection, lice. Vital signs: are WNL, pt. is afebrile H&PE are most consistent with infected insect bite left upper extremity ORDERS: none required at this time, the diagnosis is clinical ED INTERVENTIONS: -Benadryl IM DISCHARGE: At this time pt. is stable for d/c to home. Will provide printed patient care instructions, and any necessary prescriptions. Care plan and follow up instructions have been discussed with the patient prior to discharge. Last Vital Signs Date Time Temp Pulse Resp B/P (MAP) Pulse Ox O2 Delivery O2 Flow Rate FiO2 02/07/20 13:04 98.4 84 19 143/91 98 Room Air Disposition: HOME, SELF-CARE Condition: Stable Scripts Diphenhydramine Hcl (BENADRYL ALLERGY) 25 Mg Tablet 25 MG PO Q6HR, #30 TAB Prov: Claribel Toribio 02/07/20 Hydrocortisone 1% Oint (Hydrocortisone 1% Oint*) Y Oint 1 APPLIC TP Q8HR, #15 GM Prov: Claribel Toribio 02/07/20 Cephalexin* (KEFLEX*) 500 Mg Capsule 500 MG ORAL EVERY 12 HOURS for 7 Days, #14 CAP 0 Refills Prov: Claribel Toribio 02/07/20 Patient Instructions: Insect Bite, [id number] Additional Instructions: Take medications as directed. Follow up with a Primary Care Provider in 3-5 days, even if your symptoms have resolved. --Please review list of primary care clinics, if you do not already have a primary care provider Return sooner to ED if new symptoms occur, or current symptoms become worse. Do not drink alcohol, drive, or operate heavy machinery while taking Benadryl as this may cause drowsiness. - Please note that this Emergency Department Report was dictated using OpenHomesprint inspector technology software, occasionally this can lead to erroneous entry secondary to interpretation by the dictation equipment. Claribel Toribio Feb 07, 2020 13:52
[2020-02-07] MEDS ORDERED: BENADRYL ALLERG25 M1 PO (13:56)
[2020-02-07] MEDS ORDERED: HYDROCORTISONE28 G2 TP (13:56)
[2020-02-07] MEDS ORDERED: CEPHALEXIN500 MG ORAL (13:56)
[2020-02-07 14:00] VITALS: BP 143/91
--- NOTE | 2020-02-07 14:00 | NUR ---
ED Nurse Note: Pt cleared by health care Provider for discharge. DC instructions/prescription was given and explained to pt and verbalized understanding of teachings. All medical deviecs such as ID band removed. Pt is AAO x4, ambulatory and left with all personal belongings.
== END 2020-02-07 14:00 | disposition home or self-care (01) ==
LOC: EMR 13:40
DX: S40.862A Insect bite (nonvenomous) of left upper arm, initial encounter (principal); W57.XXXA Bitten or stung by nonvenomous insect and other nonvenomous arthropods, initial encounter; Y92.9 Unspecified place or not applicable; M19.90 Unspecified osteoarthritis, unspecified site; I10 Essential (primary) hypertension; K21.9 Gastro-esophageal reflux disease without esophagitis; E11.9 Type 2 diabetes mellitus without complications; Z91.041 Radiographic dye allergy status
CPT/HCPCS: 96372; 99283; J1200

== ENCOUNTER 2020-05-27 10:11 | Emergency (ER) | payer MEDICARE, MEDICAID ==
[~2020-05-27] VITALS: Ht 180.3 cm; Wt 101.2 kg
[~2020-05-27 10:11] MED LIST changes: +HYDROCORTISONE28 G2 TP
[2020-05-27 10:51] VITALS: BP 180/103
[2020-05-27 10:51] LABS: BASOPHILS % (AUTO) 0.7 % (0.0-2.0); EOSINOPHILS % (AUTO) 2.6 % (0.0-3.0); HEMATOCRIT 42.5 % (37.0-47.0); LYMPHOCYTES % (AUTO) 32.8 % (20.0-45.0); MEAN CORPUSCULAR VOLUME 95 FL (80-99); MONOCYTES % (AUTO) 4.7 % (1.0-10.0); NEUTROPHILS % (AUTO) 59.2 % (45.0-75.0); PLATELET COUNT 227 K/UL (150-450); RED BLOOD COUNT 4.46 M/UL (4.20-5.40); RED CELL DISTRIBUTION WIDTH 12.4 % (11.6-14.8); WHITE BLOOD COUNT 8.9 K/UL (4.8-10.8)
[2020-05-27 10:56] LABS: APPEARANCE,URINE CLEAR; BILIRUBIN, URINE NEGATIVE (NEGATIVE); COLOR,URINE PALE YELLOW; GLUCOSE, URINE (UA) NEGATIVE (NEGATIVE); KETONES,URINE NEGATIVE (NEGATIVE); LEUKOCYTE ESTERASE ,URINE NEGATIVE (NEGATIVE); NITRITE,URINE NEGATIVE (NEGATIVE); PH,URINE 7 (4.5-8.0); PROTEIN,URINE NEGATIVE (NEGATIVE); UROBILINOGEN,URINE NORMAL MG/DL (0.0-1.0)
[2020-05-27 10:59] LABS: ANION GAP 9 mmol/L (5-15); BLOOD UREA NITROGEN 11 mg/dL (7-18); CALCIUM 8.5 MG/DL (8.5-10.1); CARBON DIOXIDE 27 MMOL/L (21-32); CHLORIDE 106 MMOL/L (98-107); CREATININE 0.8 MG/DL (0.55-1.30); POTASSIUM 3.8 MMOL/L (3.5-5.1); SODIUM 142 MMOL/L (136-145)
--- NOTE | 2020-05-27 11:03 | Emergency Room Report ---
History of Present Illness General Chief Complaint: Dizziness Source: Patient Present Illness HPI Disclaimer: Please note that this report is being documented using DRAGON technology. This can lead to erroneous entry secondary to incorrect interpretation by the dictating instrument. HPI: 64-year-old female history of hypertension diabetes presents for evaluation of lightheadedness. Patient states she felt lightheaded and near syncopal yesterday afternoon. Also been complaining of dry mouth. States she has been eating and drinking normally. Poor sleep lately. Denies alcohol, stimulant use, does smoke cigarettes. Denies chest pain, palpitations, shortness of breath, cough, fever, chills. Has been feeling intermittently warm but without diaphoresis. No prior history of thyroid issues though there is a family history. Denies history of anemia. Denies bleeding, abdominal pain nausea or vomiting. No other symptoms at this time. PMH: Hypertension, diabetes PSH: Reviewed Allergies: Iodine Social Hx: Tobacco use Allergies: Coded Allergies: IODINE (Verified Allergy, Unknown, 08/05/16) COVID-19 Screening Contact w/high risk pt: No Experienced COVID-19 symptoms?: No COVID-19 Testing performed MEDICAL EQUIPMENT REPAIRER: No Nursing Documentation-PMH Hx Cardiac Problems: No - arthritis Hx Hypertension: Yes Hx Pacemaker: No Hx Asthma: No Hx COPD: No Hx Diabetes: Yes Hx Cancer: No Hx Gastrointestinal Problems: Yes - GERD Hx Dialysis: No Hx Neurological Problems: No Hx Cerebrovascular Accident: No Hx Seizures: No Review of Systems All Other Systems: negative except mentioned in HPI Physical Exam Vital Signs Date Time Temp Pulse Resp B/P (MAP) Pulse Ox O2 Delivery O2 Flow Rate FiO2 05/27/20 10:30 99.0 89 16 180/103 (128) 95 Room Air General: Awake and alert, no acute distress, hypertensive HEENT: NC/AT. EOMI. Cardiovascular: RRR. S1 and S2 normal. No murmur appreciated Resp: Normal work of breathing. No cough, wheezing or crackles appreciated Abdomen: Abdomen is soft, nondistended. Nontender Skin: Intact. No abrasions, laceration or rash over the exposed skin MSK: Normal tone and bulk. Moving all extremities. No obvious deformity. Neuro: Awake and alert. Mentating appropriately. Medical Decision Making Diagnostic Impression: Primary Impression: Dizziness ER Course 64-year-old female presenting for lightheadedness. Differential includes was not limited to dehydration, palpitations, thyroid dysfunction, ACS, electrolyte abnormality among others. Arrives with stable vital signs and hypertensive but did not take her medications this morning. Her EKG is nonischemic. Labs are unremarkable. Orthostatics are negative. Patient received IV fluids and feels much better. I instructed her to restart taking her antihypertensive medications. She will follow up with her PMD. Stable for outpatient follow-up. Laboratory Tests Test 05/27/20 10:41 05/27/20 10:45 White Blood Count 8.9 K/UL (4.8-10.8) Red Blood Count 4.46 M/UL (4.20-5.40) Hemoglobin 13.0 G/DL (12.0-16.0) Hematocrit 42.5 % (37.0-47.0) Mean Corpuscular Volume 95 FL (80-99) Mean Corpuscular Hemoglobin 29.2 PG (27.0-31.0) Mean Corpuscular Hemoglobin Concent 30.7 G/DL (32.0-36.0) L Red Cell Distribution Width 12.4 % (11.6-14.8) Platelet Count 227 K/UL (150-450) Mean Platelet Volume 7.3 FL (6.5-10.1) Neutrophils (%) (Auto) 59.2 % (45.0-75.0) Lymphocytes (%) (Auto) 32.8 % (20.0-45.0) Monocytes (%) (Auto) 4.7 % (1.0-10.0) Eosinophils (%) (Auto) 2.6 % (0.0-3.0) Basophils (%) (Auto) 0.7 % (0.0-2.0) Sodium Level 142 MMOL/L (136-145) Potassium Level 3.8 MMOL/L (3.5-5.1) Chloride Level 106 MMOL/L (98-107) Carbon Dioxide Level 27 MMOL/L (21-32) Anion Gap 9 mmol/L (5-15) Blood Urea Nitrogen 11 mg/dL (7-18) Creatinine 0.8 MG/DL (0.55-1.30) Estimated Glomerular Filtration Rate > 60 mL/min (>60) Glucose Level 149 MG/DL (74-106) H Calcium Level 8.5 MG/DL (8.5-10.1) Total Bilirubin 0.7 MG/DL (0.2-1.0) Aspartate Amino Transferase (AST) 19 U/L (15-37) Alanine Aminotransferase (ALT) 26 U/L (12-78) Alkaline Phosphatase 85 U/L (46-116) Troponin I 0.000 ng/mL (0.000-0.056) Total Protein 7.5 G/DL (6.4-8.2) Albumin 3.5 G/DL (3.4-5.0) Globulin 4.0 g/dL Albumin/Globulin Ratio 0.9 (1.0-2.7) L Thyroid Stimulating Hormone (TSH) 1.210 uiU/mL (0.358-3.740) Free Thyroxine 0.71 NG/DL (0.76-1.46) L Free Triiodothyronine 2.4 pg/mL (2.3-4.2) Urine Color Pale yellow Urine Appearance Clear Urine pH 7 (4.5-8.0) Urine Specific [place] 1.005 (1.005-1.035) Urine Protein Negative (NEGATIVE) Urine Glucose (UA) Negative (NEGATIVE) Urine Ketones Negative (NEGATIVE) Urine Blood 1+ (NEGATIVE) H Urine Nitrite Negative (NEGATIVE) Urine Bilirubin Negative (NEGATIVE) Urine Urobilinogen Normal MG/DL (0.0-1.0) Urine Leukocyte Esterase Negative (NEGATIVE) Urine RBC 0-2 /HPF (0 - 2) Urine WBC 0-2 /HPF (0 - 2) Urine Squamous Epithelial Cells Occasional /LPF Urine Bacteria Occasional /HPF (NONE) EKG Diagnostic Results Troponin ordered: Yes When was troponin ordered?: May 27, 2020 EKG Time: 10:41 Rate: normal Rhythm: NSR ST Segments: no acute changes Other Impression Sinus rhythm, normal axis, normal intervals, no ST segment changes. Rhythm Strip Diag. Results Rhythm Strip Time: 10:41 EP Interpretation: yes Rate: 80s Rhythm: NSR Last Vital Signs Date Time Temp Pulse Resp B/P (MAP) Pulse Ox O2 Delivery O2 Flow Rate FiO2 05/27/20 10:30 99.0 89 16 180/103 (128) 95 Room Air Disposition: HOME, SELF-CARE Condition: Stable Referrals: NOT CHOSEN IPA/,REFERRING (PCP) Ton Galvan MD May 27, 2020 11:03
[2020-05-27 11:04] VITALS: BP 160/81
[2020-05-27 11:04] LABS: ALANINE AMINOTRANSFERASE 26 U/L (12-78); ALBUMIN 3.5 G/DL (3.4-5.0); ALBUMIN/GLOBULIN RATIO 0.9 (1.0-2.7); ALKALINE PHOSPHATASE 85 U/L (46-116); ASPARTATE AMINO TRANSFERASE 19 U/L (15-37); BILIRUBIN,TOTAL 0.7 MG/DL (0.2-1.0)
[2020-05-27 11:05] VITALS: BP 171/90
[2020-05-27 11:06] VITALS: BP 193/108
[2020-05-27 13:11] VITALS: BP 193/108
== END 2020-05-27 13:12 | disposition home or self-care (01) ==
LOC: EMR 10:50
DX: R42 Dizziness and giddiness (principal); I10 Essential (primary) hypertension; E11.9 Type 2 diabetes mellitus without complications; Z88.8 Allergy status to other drugs, medicaments and biological substances; Z72.0 Tobacco use
CPT/HCPCS: 36415; 80053; 81003; 84439; 84443; 84481; 84484; 85025; 93005; 96360; 99284